=== PATIENT | male | born 1935 | race Caucasian/White ===

== ENCOUNTER 2018-04-01 11:44 | Outpatient (CLI) | payer MEDICARE, OTHER ==
--- NOTE | 2018-04-01 13:45 | MRI ---
NONCONTRAST MRI CERVICAL SPINE: Date: 03/22/18 HISTORY: Myoclonus. History of cervical spine fusion. Twitching. COMPARISON: 06/05/16. FINDINGS: There is straightening of the normal cervical lordotic curvature. Again noted is fusion of the C5-C6 and C6-C7 levels. There is mild nonspecific heterogeneity of the bone marrow similar to prior study. Cervicomedullary junction has a normal appearance. Normal signal intensity is demonstrated in the spi nal cord. C2-3 Level: Bilateral facet hypertrophic changes are again seen with resultant mild bilateral neural foraminal narrowing, similar to the prior exam. There is mild broad based disc osteophyte complex whi ch narrows the ventral subarachnoid space. C3-4 Level: There is a broad based disc osteophyte complex and uncinate process hypertrophy. This na rrows the ventral subarachnoid space. There is mild right-sided neural foraminal narrowing. The left neural foramen appears patent. C4-5 Level: There is a broad based disc osteophyte complex and uncinate process hypertrophy. This ag ain results in effacement of the ventral subarachnoid space with slight flattening of the anterior as pect of the spinal cord. Neural foramina do appear patent. C5-6 Level: There is posterior osteophyte formation, including uncinate process hypertrophy. This re sults in generalized narrowing of the central spinal canal with moderate bilateral neural foraminal n arrowing similar to the prior exam. C6-7 Level: There is posterior osteophyte formation, much less prominent than at the C5-6 level. The re is slight narrowing of the ventral subarachnoid space. The neural foramina are patent. C7-T1 Level: There is no disc bulge or disc herniation. Central spinal canal and neural foramina are patent. IMPRESSION: 1. Stable degenerative changes of the cervical spine, as well as stable fusion of C5-6 and C6-7 leve ls. 2. Normal signal intensity demonstrated in the spinal cord. POS: [facility]
== END 2018-04-01 11:45 | disposition home or self-care (01) ==
LOC: SCSMRI 11:44
PROVIDERS: ATTEND Psychiatry & Neurology Neurology
DX: G25.3 Myoclonus (principal); M47.892 Other spondylosis, cervical region; Z98.1 Arthrodesis status
CPT/HCPCS: 72141

== ENCOUNTER 2019-01-09 15:35 | Outpatient (CLI) | payer MEDICARE, OTHER ==
--- NOTE | 2019-01-09 15:45 | SJPRAD ---
EXAM: Chest 2 views: HISTORY: Cough COMPARISON: 12/12/2018 FINDINGS: There is a normal-sized cardiomediastinal silhouette. Atherosclerotic calcifications are seen in the aorta. There is no evidence of consolidation, mass, or pleural effusion. Degenerative changes are seen in the spine. IMPRESSION: No evidence of acute cardiopulmonary disease
== END 2019-01-09 15:36 | disposition home or self-care (01) ==
LOC: MWLC RAD 15:35
PROVIDERS: ATTEND Family Medicine
DX: R05 Cough (principal)

== ENCOUNTER 2019-04-30 12:57 | Inpatient (IN) | payer MEDICARE ==
[2019-04-30] MEDS ORDERED: Morphine 4 MG/ML VIAL ONE ×2 (13:56→18:20)
[2019-04-30] MEDS ORDERED: Ondansetron PF 4 MG/2 ML Vial ONE ×2 (13:56→18:20)
[2019-04-30 13:57] LABS: #Lymphocytes 1.6 thou/uL (1.20-3.40); #Monocytes 1.2 thou/uL (0.11-0.59); #Neutrophils 9.3 thou/uL (1.40-6.50); %Basophils 0.1 % (0.0-1.0); %Eosinophils 0.1 % (0.0-10.0); %Lymphocytes 13.2 % (21.0-51.0); %Monocytes 9.6 % (0.0-10.0); %Neutrophils 76.9 % (42.0-75.0); Hemoglobin 14.3 g/dL (14.0-18.0); Mean Corpuscular HGB CONC 33.6 g/dL (32.0-36.0); Mean Corpuscular Hemoglobin 30.7 pg (27.0-31.0); Mean Corpuscular Volume 91.4 fL (78.0-98.0); Mean Platelet Volume 9.3 fL (7.4-10.4); Platelet Count 155 thou/uL (130-400); RBC Distribution Width 12.9 % (11.5-14.5); Red Blood Cell (RBC) Count 4.67 mill/uL (4.70-6.10); White Blood Cell (WBC) Count 12.1 thou/uL (4.8-10.8)
[2019-04-30 14:19] LABS: ALT (SGPT) 11 U/L (8-55); AST (SGOT) 12 U/L (5-34); Alkaline Phosphatase 83 U/L (40-110); Anion Gap 14 mmol/L (10-20); BUN (Urea Nitrogen) 33 mg/dL (8.4-25.7); Bilirubin, Total 0.8 mg/dL (0.2-1.2); Calc. Creatinine Clearance 0 mL/min (70-130); Calcium 9.6 mg/dL (7.8-10.44); Carbon Dioxide 28 mmol/L (23-31); Chloride 99 mmol/L (98-107); Estimated GFR-MDRD 45; Globulin 2.7 g/dL (2.4-3.5); Glucose 139 mg/dL (83-110); Lipase 11 U/L (8-78); Potassium 3.8 mmol/L (3.5-5.1); Protein, Total 6.7 g/dL (5.8-8.1); Sodium 137 mmol/L (136-145)
[2019-04-30 15:29] LABS: Bacteria/HPF None Seen HPF (None Seen); Bilirubin Negative (Negative); Blood, Urine 1+ (Negative); Clarity Clear (Clear); Glucose, Urine (Dipstick) Normal (Negative); Leukocyte Negative Leu/uL (Negative); Nitrite Negative (Negative); Protein, Urine (Dipstick) 10 mg/dL (Neg-Trace); RBC/HPF 0-3 HPF (0-3); Squamous Epithelial None Seen HPF (0-3); Urobilinogen Normal mg/dL (Less than 2); WBC/HPF 0-3 HPF (0-3)
--- NOTE | 2019-04-30 15:33 | RAD ---
Exam: Chest one view HISTORY:Cough Comparison: 12/29/2012 FINDINGS: Cardiac silhouette: Normal Aorta: Atherosclerosis of the aortic knob Pulmonary vessels: Normal Costophrenic angles: Clear LUNGS: No masses or consolidation in the right lung. Chronic changes, bilaterally. Partial obscuratio n of the left hemidiaphragm. Left lower lobe infiltrate cannot be excluded. Pneumothorax: None Osseous abnormalities: None IMPRESSION: Possible left lower lobe infiltrate.
[2019-04-30] MEDS ORDERED: Iopamidol-370 76% 500 ML 1 ML ONE (16:48)
[2019-04-30] MEDS ORDERED: Iopamidol 370 76% 50 ML VIAL FS ONE (16:48)
[2019-04-30] MEDS ORDERED: Benzocaine 20% Spray 60 ML CAN ONE (18:22)
[2019-04-30] MEDS ORDERED: Ondansetron PF 4 MG/2 ML Vial IVP PRN (18:32)
[2019-04-30] MEDS ORDERED: Sodium Chloride 0.9% (PF) 10 ML VIAL FS PRN (18:42)
--- NOTE | 2019-04-30 21:09 | CT ---
CT ABDOMEN AND PELVIS WITH ORAL AND IV CONTRAST: Date: 04/30/19 HISTORY: Right lower quadrant abdominal pain and vomiting. FINDINGS: Comparison made with exam of 04/28/[address] [facility]. There are dependent changes in the lung bases with calcified granulomas. The liver, spleen, pancreas, and adrenal glands are normal. There are cysts in the kidneys. There is vicarious excretion of contr ast in the gallbladder. 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 No free air is seen. There is a small amount of free fluid in the pelvis. The small bowel loops are abnormally dilated with suggestion of a transitional zone in the distal ile um. There is also swelling of the small bowel mesentery. An internal hernia cannot be excluded. No pn eumatosis is seen. The anastomotic staple line in the cecum is again noted. Nonobstructing left renal calculus is unchanged. IMPRESSION: 1. Findings are suggestive of small bowel obstruction. An internal hernia cannot be excluded. 2. Bilateral renal cysts. 3. Nonobstructing left renal calculus. POS: [facility]O
--- NOTE | 2019-04-30 21:18 | RAD ---
ONE VIEW ABDOMEN: History: Evaluate NG tube placement. FINDINGS: One view abdomen demonstrates a nasogastric tube terminating in the distal stomach. There are multiple contrast filled dilated loops of small bowel. Contrast is also noted in the urinar y bladder. IMPRESSION: A nasogastric tube terminates in the stomach. POS: PPP
[2019-04-30] MEDS: Enoxaparin Sodium 40 MG/0.4 ML SYRINGE SC SCH (21:33)
[2019-04-30] MEDS: Lactated Ringer's 1,000 ML IV SCH (21:33)
[2019-04-30] MEDS: Lorazepam 2 MG/ML VIAL SLOW IVP PRN (21:36)
--- NOTE | 2019-04-30 22:20 | HP ---
HISTORY OF PRESENT ILLNESS: Alycia Stapleton is an 83-year-old male, patient from [place], he is here with his . Two days ago, he was at [facility] and 2 days prior to that began having experienced crampy abdominal pain, distention, nausea. He was seen at [facility], evaluated, sent home with a possible early bowel obstruction. He continued to have symptoms, nausea, vomiting, cramps, lack of bowel movement and minimal flatus, and presented to the emergency room today and evaluated in the emergency room with a CAT scan of the abdomen and pelvis demonstrating changes consistent with bowel obstruction. I have been asked to see him. The patient has had a prior appendectomy. Cannot recall whether it is laparoscopic or open and I cannot find any scars that would be consistent with open procedure. He has had an open inguinal hernia repair. He reports having had a colonoscopy about 4 years ago and many colonoscopies prior to that. He has had in the past large polyps removed. Formal radiology reading is pending, but CAT scan revealed a very full stomach, dilated loops of small bowel with air-fluid levels and some sigmoid stool, but not overly constipated. There are no evident hernias. Gallbladder appears to be normal. Chest x-ray obtained is unremarkable except for possible left lower lobe infiltrate. White count is 12, hemoglobin 14, BUN 33, creatinine 1.48, sodium 137. Perusing past computer records, he is noted to have intermittently elevated creatinine mildly to 1.47-1.38, but mostly this has been normal since 2013. He may have mild CKD with mild SUZAN this admission from dehydration. On 02/28/2015, robotic right colectomy, sessile tumor mass, benign adenomatous polyp, no malignancy. November 2016, upper endoscopy, duodenitis, fragments of tubular adenoma. ALLERGIES: ASPIRIN, IBUPROFEN, NOTED. SOCIAL HISTORY: Tobacco, none. Alcohol, none. PAST MEDICAL HISTORY: Hypertension, hyperlipidemia, degenerative joint disease, mild GERD, depression, erectile dysfunction, gout, polycythemia. PAST SURGICAL HISTORY: Ear tube placement, C-spine fusion, right rotator cuff, left knee arthroscopy, right inguinal hernia repair, robotic right colectomy, colonoscopies as noted. MEDICATIONS: 1. Tizanidine 4 mg at bedtime. 2. Clonazepam. 3. Klonopin 0.5 mg at bedtime. 4. Vitamin E. 5. Restoril 15 at bedtime. 6. Zocor 20 at bedtime. 7. Sertraline 25 daily. 8. Primidone 50 mg b.i.d. 9. Meclizine 25 mg p.r.n. 10. as needed. 11. Lisinopril and hydrochlorothiazide 20/12.5 daily. 12. Flunisolide nasal spray as needed. 13. Colestipol 2 g p.o. p.r.n. 14. Ascorbic acid daily. REVIEW OF SYSTEMS: Noncontributory. PHYSICAL EXAMINATION: VITAL SIGNS: Blood pressure 140/82, respiratory rate 18. HEAD, EARS, EYES, NOSE AND THROAT: Unremarkable. LUNGS: Clear to auscultation. CARDIAC: Regular rate and rhythm without murmur or gallop. ABDOMEN: Mildly distended, mildly tympanitic. No hernias noted. Open right inguinal hernia repair scar, right groin. EXTREMITIES: Unremarkable. LABORATORY DATA: As noted. ASSESSMENT AND PLAN: 1. Bowel obstruction. We would plan NG tube suction overnight. Small bowel follow through tomorrow. Further recommendation will be based on clinical course. 2. Mild above-knee amputation, hydration, LR. 3. Hypertension. 4. Hyperlipidemia. 5. History of polyps. Now the patient is baseline, lives with his . He is healthy. He occasionally walks with a cane for comfort and reassurance, but is otherwise mentates normally and is independently mobile. Job ID: [id number]
[2019-05-01] MEDS: Lactated Ringer's 1,000 ML IV SCH ×3 (05:14→23:39)
[2019-05-01 05:35] LABS: #Lymphocytes 2.1 thou/uL (1.20-3.40); #Monocytes 1.3 thou/uL (0.11-0.59); #Neutrophils 7.5 thou/uL (1.40-6.50); %Eosinophils 0.3 % (0.0-10.0); %Lymphocytes 19.2 % (21.0-51.0); %Monocytes 11.7 % (0.0-10.0); %Neutrophils 68.8 % (42.0-75.0); Mean Corpuscular HGB CONC 33.9 g/dL (32.0-36.0); Mean Corpuscular Hemoglobin 31.4 pg (27.0-31.0); Mean Corpuscular Volume 92.7 fL (78.0-98.0); Mean Platelet Volume 10.2 fL (7.4-10.4); Platelet Count 144 thou/uL (130-400); RBC Distribution Width 12.7 % (11.5-14.5); Red Blood Cell (RBC) Count 4.15 mill/uL (4.70-6.10); White Blood Cell (WBC) Count 10.9 thou/uL (4.8-10.8)
[2019-05-01 05:59] LABS: ALT (SGPT) 9 U/L (8-55); AST (SGOT) 11 U/L (5-34); Albumin 3.6 g/dL (3.4-4.8); Alkaline Phosphatase 71 U/L (40-110); Anion Gap 12 mmol/L (10-20); BUN (Urea Nitrogen) 34 mg/dL (8.4-25.7); Bilirubin, Total 0.7 mg/dL (0.2-1.2); Calc. Creatinine Clearance 42 mL/min (70-130); Calcium 9.2 mg/dL (7.8-10.44); Carbon Dioxide 31 mmol/L (23-31); Chloride 98 mmol/L (98-107); Estimated GFR-MDRD 44; Globulin 2.4 g/dL (2.4-3.5); Glucose 110 mg/dL (83-110); Potassium 3.4 mmol/L (3.5-5.1); Sodium 138 mmol/L (136-145)
[2019-05-01] MEDS: Pantoprazole 40 MG VIAL IVP SCH (08:01)
--- NOTE | 2019-05-01 11:32 | RAD ---
TWO VIEWS ABDOMEN: HISTORY: Evaluate small bowel obstruction. FINDINGS: Nasogastric tube terminates at the distal stomach. Multiple contrast-filled loops of small bowel. Haylie stomotic suture chain in the right lower quadrant. Scattered fecal material in the right hemicolon. Contrast opacifies and mildly distends the bladder. IMPRESSION: Fluid-filled and contrast filled prominent small bowel loops. Transcribed Date/Time: 05/01/2019 11:49 AM
--- NOTE | 2019-05-01 13:20 | CT ---
CT BRAIN WITHOUT CONTRAST: Date: 05/01/19 HISTORY: Fall, headache. FINDINGS: Comparison made with CT scan of 02/09/07. Correlation made with the MRI of 10/08/16. Changes of cortical atrophy and chronic small vessel ischemic disease again seen. The ventricular siz e is appropriate and the basilar cisterns are patent. No evidence of acute infarct, hemorrhage, midli ne shift, or abnormal extra-axial fluid collections are seen. The bony calvarium is intact. There is mild mucosal disease in the paranasal sinuses. IMPRESSION: No CT evidence of acute intracranial process. POS: [facility]
[2019-05-01] MEDS ORDERED: Lidocaine 1% w/Epinephrine 1:100K 20 ML VIAL FS SCH (13:30)
[2019-05-01] MEDS: Triple Antibiotic Oint 1 GM Packet TOP PRN (13:49)
--- NOTE | 2019-05-01 14:01 | PRG ---
DATE OF SERVICE: 05/01/2019 SUBJECTIVE: Alycia Stapleton is doing well today. However, in x-ray, undergoing a small bowel follow-through. He was left unattended on the x-ray table and a passerby radiologist discovered the patient had fallen off the table to the floor. Apparently, the patient did not lose consciousness. He is not amnestic for the event. His CAT scan of the head was obtained and is unremarkable. The patient is a little sleepy, but he is like that sometimes small bowel follow-through is not progressing after an hour and a half. He has not had any nausea or vomiting, or cramps, however. NG tube output last night was 600 mL. OBJECTIVE: LUNGS: Clear to auscultation. CARDIAC: Regular rate and rhythm without murmur or gallop. ABDOMEN: Soft, mildly distended, tympanitic. LABORATORY DATA: White count 10 and hemoglobin 13. Sodium 138, BUN 34, creatinine 1.5, which is stable for him. GFR 44. ASSESSMENT AND PLAN: Small bowel obstruction after robotic right colon for large polyp. He has fallen, has 3 cm laceration over his forehead, which will need to be closed at bedside and will be performed today. There is no evidence of an intracranial injury evident by CT scan and neurologically, he is intact. He denies any neck pain and his neck is not tender. Await small bowel followthrough results. Dr. Friedman performed his robotic right colon in the past and will assume his care. Job ID: [id number]
--- NOTE | 2019-05-01 15:25 | OP ---
DATE OF PROCEDURE: 05/01/2019 PREOPERATIVE DIAGNOSIS: Forehead laceration, 3 cm secondary to a fall off an x-ray table in X-ray Department during a small-bowel follow-through procedure (CAT scan of the head is negative, and he did not lose consciousness and is not amnestic). POSTOPERATIVE DIAGNOSIS: Forehead laceration, 3 cm secondary to a fall off an x-ray table in X-ray Department during a small-bowel follow-through procedure (CAT scan of the head is negative, and he did not lose consciousness and is not amnestic). PROCEDURE PERFORMED: Suture of laceration, 6-0 Prolene, 3 cm forehead laceration. ANESTHESIA: 1% Xylocaine with epinephrine. DESCRIPTION OF PROCEDURE: With the patient at bedside in his room, his forehead laceration was prepared with Betadine and draped in routine fashion. Local anesthetic was infiltrated in the skin and subcutaneous tissue, and the skin was approximated with continuous suture of 6-0 Prolene. Antibiotic ointment was applied. Job ID: [id number]
--- NOTE | 2019-05-01 16:04 | RAD ---
Small bowel series: DATE: 05/01/2019 HISTORY: 83-year-old male with small bowel obstruction. FINDINGS: Offset Platemaker view demonstrates residual dilute enteric contrast material in small intestine from recent CT. Gastrografin injected into stomach via esophagogastric tube. Gastrografin progresses slowly through mildly dilated small bowel loops. There is little progress between the 2.5 hour and 4.5 hour images. IMPRESSION: Evidence for small bowel obstruction.
--- NOTE | 2019-05-01 16:40 | PRG ---
DATE OF SERVICE: 05/01/2019 SUBJECTIVE: Mr. Stapleton is an 83-year-old white male well known to myself from prior surgery in 2015. At that point, I performed a robotic right hemicolectomy. He had a large benign unresectable polyp. He did very well after that surgery and was discharged on postoperative day #2 and has had no subsequent problems for the past 4 years. He was admitted to the hospital yesterday with abdominal pain, distention, nausea, vomiting, and evidence of bowel obstruction on CT scan. Nasogastric tube was placed overnight. He was admitted in my absence by Dr. Maldonado. Additionally, Dr. Maldonado sutured laceration on his forehead earlier today when he fell in the radiology department. A Gastrografin small-bowel follow-through was initiated earlier today. He has had no bowel movement. He tells me he does not feel like he is going to vomit. His abdomen is actually fairly quiet. He denies tenderness, but it is also relatively firm to examination. He has difficulty relaxing his abdominal musculature. OBJECTIVE: VITAL SIGNS: He is afebrile. Vital signs are essentially normal, although he is mildly hypertensive. LABORATORY STUDIES: Reveal a mild leukocytosis, which is improved since admission. His chemistry panel is unremarkable with mild renal insufficiency. X-rays revealed that the contrast had not advanced after about an hour and a half. Additional films are planned for today. ASSESSMENT: The patient with small bowel obstruction. Plan is to complete his small bowel follow-through. I would anticipate that he will begin having bowel movements or he would vomit. If he vomits, then tube will be placed to suction and he would likely require surgery tomorrow. Depending upon the distention of his abdomen and intestines, this may be able to be performed laparoscopically or may have to be performed as an open surgery. I have discussed all this with the patient and his family. They understand and agree to proceed in this fashion. Job ID: [id number]
[2019-05-01] MEDS ORDERED: Fleet Enema 133 ML BOT FS SCH (18:30)
[2019-05-01] MEDS ORDERED: Fleet Enema 133 ML BOT PR SCH (18:30)
[2019-05-01] MEDS: Ketorolac Tromethamine 30 MG/ML VIAL IVP PRN (20:17)
[2019-05-01] MEDS: Enoxaparin Sodium 40 MG/0.4 ML SYRINGE SC SCH (20:17)
[2019-05-01] MEDS: Morphine 2 MG/ML SYRINGE SLOW IVP PRN (20:18)
[2019-05-01] MEDS: Lorazepam 2 MG/ML VIAL SLOW IVP PRN (23:39)
--- NOTE | 2019-05-02 06:47 | PDOC.GSPN ---
Surgery Progress Note: Subj - Subjective Narrative: Mr. Stapleton is an 83 year old male who presented 2 days ago with abdominal pain, distension, nausea, and vomiting. He was diagnosed with a small bowel obstruction based on clinical picture and confirmatory imaging. His last episode of emesis was yesterday afternoon, 300 mL. He currently has an NG tube set to suction that put out 1100 mL overnight. He received an enema last night, which produced a small amount of hard fecal material. He is currently NPO in preparation for the OR today. He is currently receiving LR at 120 mL/hr. He voided 400 mL overnight. Last night he received Ativan for confusion and agitation. The night nurse reports that he has night terrors and PTSD, which contributed to this agitation. Surgery Progress Note: Obj - Vital signs Vital signs: Vital Signs - Most Recent Temp Pulse Resp BP Pulse Ox 98.0 F 75 18 126/64 95 05/02/19 03:28 05/02/19 03:28 05/02/19 03:28 05/02/19 03:28 05/02/19 03:28 - Physical Exam General: no distress, no pain ENT: decreased hearing (hearing aids present) Cardiovascular: regular rate and rhythm, no murmur Respiratory: clear to auscultation, normal respiratory effort Abdomen: soft, non tender, nondistended, decreased bowel sounds (minimal bowel sounds present on auscultation). negative: guarding, rigid Wound: healing well (laceration on right upper forehead is without erythema or drainage), drainage (NG tube in place set to suction) Surgery Progress Note: Results - Labs Result Diagrams: 05/01/19 04:37 05/01/19 04:37 Surgery Progress Note: A/P - Problem (1) Small bowel obstruction Current Visit: Yes Code(s): K56.609 - UNSP INTESTNL OBST, UNSP TO PARTIAL VERSUS COMPLETE OBST Status: Acute Assessment and Plan: Patient is an 83 year old male with a small bowel obstruction that has not resolved with conservative measures. He will go to the OR today. Vital signs are all within normal limits. He has no new labs today, and labs yesterday revealed resolving leukocytosis and mild renal insufficiency. Dr. Friedman discussed the plan for surgery with the patient and his family yesterday and they have agreed to the current plan.
[2019-05-02 08:06] LABS: #Lymphocytes 1.6 thou/uL (1.20-3.40); #Monocytes 0.8 thou/uL (0.11-0.59); #Neutrophils 6.5 thou/uL (1.40-6.50); %Basophils 0.3 % (0.0-1.0); %Eosinophils 0.2 % (0.0-10.0); %Lymphocytes 17.8 % (21.0-51.0); %Monocytes 8.9 % (0.0-10.0); %Neutrophils 72.7 % (42.0-75.0); Hemoglobin 14.4 g/dL (14.0-18.0); Mean Corpuscular HGB CONC 33.5 g/dL (32.0-36.0); Mean Corpuscular Hemoglobin 30.7 pg (27.0-31.0); Mean Corpuscular Volume 91.7 fL (78.0-98.0); Mean Platelet Volume 9.4 fL (7.4-10.4); Platelet Count 143 thou/uL (130-400); RBC Distribution Width 12.9 % (11.5-14.5); Red Blood Cell (RBC) Count 4.68 mill/uL (4.70-6.10)
[2019-05-02 08:22] LABS: Anion Gap 19 mmol/L (10-20); BUN (Urea Nitrogen) 36 mg/dL (8.4-25.7); Calc. Creatinine Clearance 41 mL/min (70-130); Calcium 9.8 mg/dL (7.8-10.44); Carbon Dioxide 28 mmol/L (23-31); Chloride 101 mmol/L (98-107); Estimated GFR-MDRD 43; Glucose 106 mg/dL (83-110); Potassium 3.1 mmol/L (3.5-5.1); Sodium 145 mmol/L (136-145)
--- NOTE | 2019-05-02 08:51 | RAD ---
XR Abdomen 1 View/KUB History: Small bowel follow-through follow-up Comparison: Small bowel follow-through examination prior day Findings: Enteric tube is in place with tip at the gastric antrum. There continue to be dilated loops of small bowel. There is contrast throughout the majority of the small bowel although no definite large bowel contrast is appreciated. There is old retained contrast within the transverse colon. Impression: Small bowel obstruction.
[2019-05-02] MEDS: Potassium Chloride 20 MEQ in Lactated Ringer's 1,000 ML IV SCH ×3 (09:15→22:52)
[2019-05-02] MEDS: Ketorolac Tromethamine 30 MG/ML VIAL IVP PRN (09:16)
[2019-05-02] MEDS: Triple Antibiotic Oint 1 GM Packet TOP PRN (09:16)
[2019-05-02] MEDS: Pantoprazole 40 MG VIAL IVP SCH (09:16)
[2019-05-02] MEDS: Lactated Ringer's 1,000 ML IV SCH (10:33)
[2019-05-02] MEDS ORDERED: Metoprolol Tartrate 5 MG/5 ML VIAL ONE (10:44)
[2019-05-02] MEDS ORDERED: Rocuronium Bromide 10 MG/ML (10ML VIAL) ONE (10:44)
[2019-05-02] MEDS ORDERED: Lidocaine 1% PF 5 ML VIAL ONE (10:44)
[2019-05-02] MEDS ORDERED: Succinylcholine Chloride 20 MG/ML 10 ml SYRINGE FS ONE (10:44)
[2019-05-02] MEDS ORDERED: PHENYLEPHRINE-NS 100 MCG/ML 10 ML SYRINGE ONE (10:44)
[2019-05-02] MEDS ORDERED: Glycopyrrolate 0.2 MG/ML 5 ML SYRINGE ONE (10:44)
[2019-05-02] MEDS ORDERED: PROPOFOL 200 MG/20 ML VIAL ONE (10:44)
[2019-05-02] MEDS ORDERED: ePHEDrine/0.9% NaCl/PF SYRINGE 50 mg/10 ml ONE (10:44)
[2019-05-02] MEDS ORDERED: Ondansetron PF 4 MG/2 ML Vial ONE (10:44)
[2019-05-02] MEDS ORDERED: Potassium Chloride 40 MEQ in Sodium Chloride 0.9% 250 ML 250 ML IVPB SCH (11:00)
[2019-05-02] MEDS ORDERED: CEFAZOLIN 2 GM in Premix Bag 1 BAG IVPB SCH (11:45)
[2019-05-02] MEDS ORDERED: Acetaminophen 1,000 MG in Premix Bag 1 BAG IVPB SCH (11:45)
[2019-05-02] MEDS: Lorazepam 2 MG/ML VIAL SLOW IVP PRN (11:58)
--- NOTE | 2019-05-02 13:44 | PDOC.HOSPP ---
- Subjective Encounter Date: 05/02/19 Encounter Time: 13:44 Subjective: pt up in bed confused family at bedside. - Objective Vital Signs & Weight: Vital Signs (12 hours) Temp Pulse Resp BP Pulse Ox 05/02/19 12:00 97.6 F 79 14 169/78 H 92 L 05/02/19 08:42 93 L 05/02/19 08:00 98.0 F 90 20 152/84 H 93 L 05/02/19 03:28 98.0 F 75 18 126/64 95 05/02/19 02:41 91 L Weight Admit Weight 182 lb 8 oz Weight 182 lb 8 oz I&O: 05/01/19 05/02/19 05/03/19 06:59 06:59 06:59 Intake Total 3610 Output Total 600 4050 Balance -600 -440 Result Diagrams: 05/02/19 07:51 05/02/19 07:51 Additional Labs: Accuchecks 05/01/19 12:34 POC Glucose 102 Hospitalist ROS - Review of Systems Other: unable to obtain - Medication Medications: Active Medications Generic Name Dose Route Start Last Admin Trade Name Freq PRN Reason Stop Dose Admin Enoxaparin Sodium 40 mg 04/30/19 21:00 05/01/19 20:17 Lovenox SC 40 mg 2100 DONALD Administration Potassium Chloride 20 meq/ 1,010 mls @ 125 mls/hr 05/02/19 07:45 05/02/19 09: 15 Lactated Ringer's IV 1,010 mls .[id number] DONALD Administration Potassium Chloride 40 meq/ 270 mls @ 90 mls/hr 05/02/19 11:00 05/02/19 12:32 Sodium Chloride IVPB 05/02/19 16:00 270 mls 1100 DONALD Administration Ketorolac Tromethamine 15 mg 04/30/19 18:37 05/02/19 09:16 Toradol IVP 05/05/19 18:38 15 mg Q6H PRN Administration Pain Morphine Sulfate 2 mg 04/30/19 18:32 05/01/19 20:18 Morphine SLOW IVP 2 mg Q2H PRN Administration Mild Pain (1-3) Neomycin/Polymyxin/Bacitracin 0 gm 05/01/19 13:23 05/02/19 09:16 Triple Antibiotic TOP 1 gm BIDPRN PRN Administration INFECTION Pantoprazole Sodium 40 mg 05/01/19 09:00 05/02/19 09:16 Protonix IVP 40 mg DAILY DONALD Administration Sodium Chloride 10 ml 04/30/19 18:42 05/01/19 08:01 Normal Saline Pf FS 10 ml PRN PRN Administration RECONSTITUTION - Exam Neck: negative: supple, symmetric, no JVD, no thyromegaly, no lymphadenopathy, no carotid bruit, JVD Heart: negative: RRR, no murmur, no gallops, no rubs, normal peripheral pulses, irregular, diminshed peripheral pulses, murmur present, II/IV, III/IV Respiratory: negative: CTAB, no wheezes, no rales, no ronchi, normal chest expansion, no tachypnea, normal percussion, rales, rhonchi, tachypneic, wheezes Neurological - other findings: confused not oriented, wants to go home Hosp A/P (1) Acute metabolic encephalopathy Code(s): G93.41 - METABOLIC ENCEPHALOPATHY Status: Acute (2) Depressed Code(s): F32.9 - MAJOR DEPRESSIVE DISORDER, SINGLE EPISODE, UNSPECIFIED Status : Acute (3) Small bowel obstruction Code(s): K56.609 - UNSP INTESTNL OBST, UNSP TO PARTIAL VERSUS COMPLETE OBST Status: Acute - Plan pt is on many antipsy meds and per family has not been taking it since . will restart his oral meds and ask nurse to clamp ng if ok with surgery. I think this is delirium. He has no hx of drinking. will rescan his head per family request due to his fall yesterday, however i think his current symptoms are due to delirium. will also disconitnue ativan which worsens mental status and put him on haldol as needed. Seroquel is also a another option for delirium but it is po. i will continue his klonopin which he takes at night.
--- NOTE | 2019-05-02 14:59 | CT ---
CT BRAIN WITHOUT CONTRAST: Date: 05/02/19 HISTORY: Fall, changing mental status. COMPARISON: Previous day. FINDINGS: Changes of cortical atrophy and chronic small vessel ischemic disease again seen. Ventricular size is stable and basilar cisterns are patent. No evidence of acute infarct, hemorrhage, midline shift, or abnormal extra-axial fluid collections are seen. The bony calvarium is intact. There is mild mucosal disease in the paranasal sinuses. There is soft tissue swelling in the right frontal scalp. IMPRESSION: No CT evidence of acute intracranial process. POS: OFF
[2019-05-02] MEDS: Haloperidol Lactate 5 MG/ML VIAL SLOW IVP PRN ×2 (15:13→22:22)
[2019-05-02] MEDS ORDERED: Fentanyl 100 MCG/2 ML VIAL ONE ×3 (18:01→20:56)
[2019-05-02] MEDS ORDERED: Phenylephrine HCL 10 MG/ML VIAL ONE (18:01)
[2019-05-02] MEDS ORDERED: Norepinephrine 4 MG/4 ML VIAL ONE (18:01)
[2019-05-02] MEDS ORDERED: Albumin 5% 0 ML ONE (18:01)
[2019-05-02] MEDS ORDERED: Lidocaine 1% w/Epinephrine 1:100K 20 ML VIAL ONE (18:33)
[2019-05-02] MEDS ORDERED: Bupivacaine PF 0.5% 30 ML VIAL ONE (18:33)
[2019-05-02] MEDS ORDERED: Sodium Chloride 0.9% 20 ML ONE (18:54)
[2019-05-02] MEDS ORDERED: Promethazine HCl 25 MG/ML VIAL IM PRN (20:25)
[2019-05-02] MEDS ORDERED: Promethazine HCl 25 MG/ML VIAL SLOW IVP PRN (20:25)
[2019-05-02] MEDS ORDERED: Ondansetron HCl/PF 4 MG/2 ML Vial IVP PRN (20:25)
[2019-05-02] MEDS ORDERED: Zonisamide 100 MG CAP PO SCH (21:00)
[2019-05-02] MEDS ORDERED: clonazePAM 0.5 MG TAB PO SCH (21:00)
[2019-05-02] MEDS: hydrALAZINE 20 MG/ML VIAL SLOW IVP PRN (22:21)
[2019-05-02] MEDS: Morphine 2 MG/ML SYRINGE SLOW IVP PRN (22:24)
--- NOTE | 2019-05-02 22:46 | RAD ---
Exam: Chest one view: HISTORY: Central line placement FINDINGS: Left subclavian catheter in place without pneumothorax. NG tube in place. Evidence for free intraperi toneal air. No confluent pneumonia, acute edema, or other acute process. Old granulomatous disease. IMPRESSION: Unremarkable post left subclavian and NG tube placement exam. Free intraperitoneal air. Recent abdomi nal laparotomy by history.
[2019-05-02] MEDS: Enoxaparin Sodium 40 MG/0.4 ML SYRINGE SC SCH (23:31)
[2019-05-03] MEDS: Morphine 4 MG/ML VIAL SLOW IVP PRN (00:11)
--- NOTE | 2019-05-03 03:23 | OP ---
DATE OF PROCEDURE: 05/02/2019 PREOPERATIVE DIAGNOSIS: Small-bowel obstruction. POSTOPERATIVE DIAGNOSIS: Small-bowel obstruction. PROCEDURE PERFORMED: Laparoscopic-assisted lysis of adhesions. ANESTHESIA: General endotracheal. INDICATIONS: Patient is an 83-year-old white male. He is four years status post robotic right hemicolectomy. He presented with findings consistent with small-bowel obstruction that was not resolving with conservative management. He is taken to the operating room at this time for exploration. DESCRIPTION OF OPERATION: Informed consent was obtained. Patient was taken to the operating room, where general endotracheal anesthesia was obtained. Patient in supine position. Abdomen was prepped with ChloraPrep and draped in sterile fashion. Local anesthetic was infiltrated with 0.25% Marcaine with epinephrine. A 5 mm left mid abdominal incision created, through which a Veress needle was passed. Peritoneal cavity pneumoperitoneum established using carbon dioxide up to pressure of 15 mmHg. A 5 mm trocar port site was established using the same incision. Laparoscopic camera was passed through this port. Under direct vision, two additional 5 mm ports were placed, one in the left upper abdomen, one in the left lower abdomen. Laparoscopic exploration was attempted. Patient had diffuse dilatation of the small bowel. The transverse colon was easily visualized as it was clearly decompressed. Attempts to manipulate the bowel and move the bed so that I could try to visualize the source of a problem were unsuccessful. I therefore decided after a period of attempt that I needed to move on to a hand-assisted procedure. An 8 cm midline periumbilical incision was created and dissection carried to the abdominal cavity through the fascia. The Toilio wound retractor was placed. I was able to easily mobilize the small bowel through the retractor. There were no adhesions to the anterior abdominal wall anywhere within the abdominal cavity. As I began to explore the small bowel, I quickly noted a single obstructing band. This appeared to be between the colon near the anastomosis between the small bowel and the proximal transverse colon. This was then attached to a segment of small bowel for no apparent reason. Upon dividing that adhesion, the obstruction resolved immediately. I was able to run the small bowel essentially from the anastomosis back to the ligament of Treitz. There were no adhesions in any location. There had been no blood loss during the operation. The omentum was pulled down across the hand-assist port site. The laparoscopic access was reinstituted. The abdomen was explored. Again, the bowel dilatation made it difficult to see anything, but there was no evidence of any bleeding in any location. All ports were removed under direct vision. Pneumoperitoneum was carefully evacuated. The Otilio wound retractor and GelPort were removed. Additional local anesthetic was infiltrated using a mixture of 0.5% Marcaine and 1% lidocaine with epinephrine. The skin incisions were all closed with a 4-0 Monocryl subcuticular suture with Dermabond placed externally. The midline incision was closed with a running suture of #1 PDS. The skin edges approximated with 4-0 Monocryl subcuticular suture. Dermabond was placed externally. There were no complications at any time during the operation. Patient tolerated the procedure well. A left subclavian 7-Spanish triple-lumen central line was placed using modified Seldinger technique in the usual fashion. Each of the three lumens aspirated blood freely and was flushed with heparinized saline. Catheter was secured with 3-0 silk suture. Sterile occlusive dressing was applied. Job ID: [id number]
[2019-05-03] MEDS ORDERED: Haloperidol Lactate 5 MG/ML VIAL ONE (03:40)
[2019-05-03] MEDS ORDERED: hydrALAZINE 20 MG/ML VIAL ONE (03:41)
[2019-05-03] MEDS ORDERED: Morphine 4 MG/ML VIAL ONE (03:41)
--- NOTE | 2019-05-03 06:50 | PDOC.GSPN ---
Surgery Progress Note: Subj - Subjective Patient reports: no bowel movement Narrative: Today is POD1 from laparoscopic assisted lysis of adhesion and pt is recovering well. Pt has no BM yet w/ hypoactive bowel sound, but wound sites are recovering well. Pt did fine overnight w/ no acute events and/or febrile episodes. Pt remains combative, oriented to person only, and bed-bound, requiring 2x haloperidol and 4 point restraints. Pt had increased SBP when agitated. Pt had 1300mL LR w/ 20mEq KCl input and 1125mL NG suction along w/ 325mL Pina UO. Surgery Progress Note: Obj - Vital signs Vital signs: Vital Signs - Most Recent Temp Pulse Resp BP Pulse Ox 97.8 F 79 14 173/99 H 96 05/03/19 05:00 05/03/19 03:47 05/02/19 12:00 05/03/19 03:47 05/02/19 22:00 - Physical Exam General: other (agitated) ENT: normal mucosa, decreased hearing Cardiovascular: regular rate and rhythm (difficult to assess due to pt's grunting) Respiratory: coarse breath sounds (diffuse rhonchi w/ wet cough) Abdomen: non tender, nondistended, decreased bowel sounds, rigid Integumentary: other (no LE edema) Psychiatric: oriented to person Wound: healing well (both forehead stitches and abdominal wound sites are non- erythematus, nontender, and healing appropriately w/ intact dermabond) Surgery Progress Note: Results - Labs Result Diagrams: 05/02/19 07:51 05/02/19 07:51 Surgery Progress Note: A/P - Problem (1) Small bowel obstruction Current Visit: Yes Code(s): K56.609 - UNSP INTESTNL OBST, UNSP TO PARTIAL VERSUS COMPLETE OBST Status: Acute - Plan Plan: Alycia Stapleton is a 83YO CM w/ sig. PMH of HTN and PSH of R hemicolectomy who presented to the ED 3 days ago for complaints of ab. cramp, distention, and N/ V. Abdominal CT revealed SBO, and he underwent laparoscopic assisted adhesion lysis yesterday. Pt also suffered a scalp laceration 2 days ago when he fell off the x-ray table, which required stitches, and his FU head CT was unremarkable. Pt is recovering well on POD1 today, but remains combative and disoriented, which prevents PT. Pt has no CBC & CMP orders for today, but according to yesterday's values, pt's leukocytosis resolved completely, while his renal insufficiency worsened w/ increasing BUN & Cr. Pt also has decreasing potassium from 3.4 (05/01) to 3.1 (05/02) despite being on LR w/ 20mEq KCl. Pt had heightened SBP of 173/99 overnight. Maintain pt on current hydralazine while continue monitoring. Continue haloperidol PRN for pt's delirium while encouraging PT for strengthening. Continue LR hydration to improve pt's kidney function while potentially increasing potassium supplement for diminishing values.
[2019-05-03] MEDS: Potassium Chloride 20 MEQ in Lactated Ringer's 1,000 ML IV SCH (07:32)
[2019-05-03 07:56] LABS: Bilirubin Negative (Negative); Blood, Urine 3+ (Negative); Clarity Clear (Clear); Glucose, Urine (Dipstick) Normal (Negative); Leukocyte 500 Leu/uL (Negative); Nitrite Negative (Negative); Protein, Urine (Dipstick) 30 mg/dL (Neg-Trace); RBC/HPF Greater than 50 HPF (0-3); Squamous Epithelial 0-3 HPF (0-3); Urobilinogen Normal mg/dL (Less than 2); WBC/HPF Greater than 50 HPF (0-3)
[2019-05-03 08:02] LABS: Bacteria/HPF 1+ HPF (None Seen)
[2019-05-03 08:09] LABS: Urine Culture Reflex Yes Yes
[2019-05-03] MEDS: Pantoprazole 40 MG VIAL IVP SCH (08:41)
[2019-05-03] MEDS: Haloperidol Lactate 5 MG/ML VIAL SLOW IVP PRN ×3 (08:41→20:15)
[2019-05-03 08:54] LABS: #Lymphocytes 1.3 thou/uL (1.20-3.40); #Monocytes 0.8 thou/uL (0.11-0.59); #Neutrophils 7.2 thou/uL (1.40-6.50); %Basophils 0.1 % (0.0-1.0); %Eosinophils 0.2 % (0.0-10.0); %Monocytes 8.8 % (0.0-10.0); %Neutrophils 76.9 % (42.0-75.0); Hemoglobin 12.6 g/dL (14.0-18.0); Mean Corpuscular HGB CONC 32.5 g/dL (32.0-36.0); Mean Corpuscular Hemoglobin 30.5 pg (27.0-31.0); Mean Corpuscular Volume 93.8 fL (78.0-98.0); Mean Platelet Volume 9.9 fL (7.4-10.4); Platelet Count 134 thou/uL (130-400); RBC Distribution Width 12.5 % (11.5-14.5); Red Blood Cell (RBC) Count 4.14 mill/uL (4.70-6.10); White Blood Cell (WBC) Count 9.4 thou/uL (4.8-10.8)
[2019-05-03] MEDS: Morphine 2 MG/ML SYRINGE SLOW IVP PRN ×4 (09:08→23:02)
[2019-05-03 09:11] LABS: Anion Gap 16 mmol/L (10-20); BUN (Urea Nitrogen) 33 mg/dL (8.4-25.7); Calc. Creatinine Clearance 53 mL/min (70-130); Calcium 8.7 mg/dL (7.8-10.44); Carbon Dioxide 28 mmol/L (23-31); Chloride 106 mmol/L (98-107); Estimated GFR-MDRD 58; Glucose 93 mg/dL (83-110); Potassium 3.8 mmol/L (3.5-5.1); Sodium 146 mmol/L (136-145)
--- NOTE | 2019-05-03 10:23 | RAD ---
Portable frontal chest radiograph: 05/03/2019 COMPARISON: 05/02/2019 HISTORY: Pneumonia FINDINGS: Stable left-sided vascular catheter and nasogastric tube. No pneumothorax or pleural fluid. No focal consolidation or alveolar edema. Mild patchy opacity noted in the medial left base and the right infrahilar region, nonspecific. This may represent mild airspace disease or volume loss. IMPRESSION: Portable chest radiograph as detailed above.
[2019-05-03] MEDS ORDERED: methylPREDNISolone Sod Succ 40 MG VIAL IVP SCH (11:15)
[2019-05-03] MEDS ORDERED: Sodium Chloride 0.45% 1,000 ML IV SCH (11:15)
[2019-05-03] MEDS: 1/2 NS w/KCL 20 mEq 1,000 ML IV SCH (13:00)
--- NOTE | 2019-05-03 13:52 | PDOC.HOSPP ---
- Subjective Encounter Date: 05/03/19 Encounter Time: 13:50 Subjective: restless, on sedation - Objective Vital Signs & Weight: Vital Signs (12 hours) Temp Pulse Resp BP Pulse Ox 05/03/19 12:46 88 26 H 05/03/19 11:00 98.7 F 05/03/19 10:42 90 20 05/03/19 07:59 94 L 05/03/19 07:00 99.0 F 05/03/19 05:00 97.8 F 05/03/19 03:47 79 173/99 H Weight Admit Weight 182 lb 8 oz Weight 182 lb 8 oz Most Recent Monitor Data Heart Rate from ECG 90 NIBP 134/58 NIBP BP-Mean 83 Respiration from ECG 25 SpO2 91 I&O: 05/02/19 05/03/19 05/04/19 06:59 06:59 06:59 Intake Total 3610 2064 810 Output Total 4050 1795 290 Balance -440 269 520 Result Diagrams: 05/03/19 08:37 05/03/19 08:37 Hospitalist ROS - Medication Medications: Active Medications Generic Name Dose Route Start Last Admin Trade Name Freq PRN Reason Stop Dose Admin Albuterol/Ipratropium 3 ml 05/03/19 13:00 05/03/19 12:46 Duoneb NEB 3 ml [id number] DONALD Administration Enoxaparin Sodium 40 mg 04/30/19 21:00 05/02/19 23:31 Lovenox SC Not Given 2100 DONALD Haloperidol Lactate 5 mg 05/02/19 13:39 05/03/19 13:44 Haldol SLOW IVP 5 mg Q6H PRN Administration Agitation Hydralazine HCl 10 mg 04/30/19 18:32 05/02/19 22:21 Apresoline SLOW IVP 10 mg Q4H PRN Administration SBP > 170 or DBP > 100 Levofloxacin 500 mg/ Device 100 mls @ 100 mls/hr 05/03/19 09:00 05/03/19 09: 10 IVPB 05/07/19 09:59 100 mls 0900 DONALD Administration Dexmedetomidine HCl 200 mcg/ 50 mls @ 0 mls/hr 05/03/19 11:15 05/03/19 11:23 Sodium Chloride IVPB 50 mls INF DONALD Administration Protocol Titrate Potassium Chloride/Sodium Chloride 1,000 mls @ 75 mls/hr 05/03/19 11:45 05/03 13:00 1/2 Ns W/Kcl 20 Meq IV 1,000 mls .[id number] DONALD Administration Ketorolac Tromethamine 15 mg 04/30/19 18:37 05/02/19 09:16 Toradol IVP 05/05/19 18:38 15 mg Q6H PRN Administration Pain Morphine Sulfate 2 mg 04/30/19 18:32 05/03/19 12:40 Morphine SLOW IVP 2 mg Q2H PRN Administration Mild Pain (1-3) Morphine Sulfate 4 mg 04/30/19 18:32 05/03/19 00:11 Morphine SLOW IVP 4 mg Q2H PRN Administration Moderate Pain (4-6) Neomycin/Polymyxin/Bacitracin 0 gm 05/01/19 13:23 05/02/19 09:16 Triple Antibiotic TOP 1 gm BIDPRN PRN Administration INFECTION Pantoprazole Sodium 40 mg 05/01/19 09:00 05/03/19 08:41 Protonix IVP 40 mg DAILY DONALD Administration Sodium Chloride 10 ml 04/30/19 18:32 05/03/19 08:41 Flush - Normal Saline IVF 10 ml PRN PRN Administration Saline Flush Sodium Chloride 10 ml 04/30/19 18:42 05/01/19 08:01 Normal Saline Pf FS 10 ml PRN PRN Administration RECONSTITUTION - Exam Neck: no JVD Heart: RRR, no murmur Respiratory - other findings: coarse BS with rhonchi Gastrointestinal: soft, non-tender, normal bowel sounds Extremities: no edema Hosp A/P (1) HTN (hypertension) Code(s): I10 - ESSENTIAL (PRIMARY) HYPERTENSION Status: Acute (2) CKD (chronic kidney disease), stage III Code(s): N18.3 - CHRONIC KIDNEY DISEASE, STAGE 3 (MODERATE) Status: Acute (3) Acute metabolic encephalopathy Code(s): G93.41 - METABOLIC ENCEPHALOPATHY Status: Acute (4) Small bowel obstruction Code(s): K56.609 - UNSP INTESTNL OBST, UNSP TO PARTIAL VERSUS COMPLETE OBST Status: Acute - Plan cont iv fluids cont iv antibx CLARKE with TSH, cortiso, ammonia
--- NOTE | 2019-05-03 13:55 | CON ---
DATE OF CONSULTATION: 05/03/2019 SERVICE: Pulmonary Medicine. HISTORY OF PRESENT ILLNESS: The patient is an 83-year-old white male with past medical history significant for small-bowel obstruction. He presented to the emergency department on April 30, 2019, with cramping abdominal discomfort. He was put in the hospital for conservative treatment of a possible small-bowel obstruction. He failed conservative therapy. His course was complicated by a fall that required stitches in order to close laceration on the forehead. A CT of the head at that time did not demonstrate any significant ASSISTANT QUALITY MANAGER injury. Ultimately, he failed conservative measures and underwent a lysis of adhesion on May 02, 2019. Postoperatively, he developed a fairly dense delirium and was brought down to the ICU because it was too much to handle on the floor. He cannot provide much in the way of historical elements. He indicates that he does not drink, use illicit drugs, or tobacco products. We have never known of any delirious process that has occurred before. There is no history of dementia. He denies any current cough, fevers, chills, shortness of breath, nausea, or vomiting. He is agitated and required multiple restraints in order to prevent from hurting himself and staff members. He is a touch better than he was previously and able to follow some simple commands. He has been noted to move all 4 extremities with purpose. Otherwise, he cannot provide any additional elements of the history. PAST MEDICAL HISTORY: 1. Hypertension. 2. Dyslipidemia. 3. Osteoarthritis. 4. Polycythemia. 5. Gout. 6. Major depressive disorder. 7. Gastroesophageal reflux disease. 8. Erectile dysfunction. PAST SURGICAL HISTORY: 1. Ear tube placement. 2. C-spine fusion. 3. Right rotator cuff surgery. 4. Left knee arthroscopy. 5. Right inguinal hernia repair. 6. Right robotic colectomy. 7. Colonoscopies. 8. Lysis of adhesion. ALLERGIES: IBUPROFEN, ASPIRIN. MEDICATIONS: List of his inpatient medications were reviewed. Multiple updates were made at this time. SOCIAL HISTORY: Negative for alcohol, tobacco, or illicit drug use. FAMILY HISTORY: Noncontributory. REVIEW OF SYSTEMS: General; head, ears, eyes, nose, throat; cardiovascular; respiratory; GI; ; musculoskeletal; neurologic; and skin are negative except as mentioned in the HPI. PHYSICAL EXAMINATION: VITAL SIGNS: Afebrile. Pulse 90, blood pressure 103/72, respirations 18, saturation 93%, currently on 3 L nasal cannula. GENERAL: The patient is awake. He is alert, but agitated. He has no specific complaints currently, but is constantly thrashing about pulling on lines and tubes. HEENT: Normocephalic and atraumatic. Sclerae white. Conjunctivae pink. Oral mucosa is moist without lesions. LUNGS: Extensive rhonchi are present with no significant no significant prolongation in the expiratory phase. No wheezing or crackles are appreciated. HEART: Normal rate, regular. ABDOMEN: Soft, nontender, nondistended. Bowel sounds are hypoactive. MUSCULOSKELETAL: No cyanosis or clubbing. There is no pitting. He has a little bit of tenting. NEUROLOGIC: Grossly nonfocal. He is diffusely agitated. LABORATORY DATA: WBC 9.4, hemoglobin 12.6, platelets 134,000. Creatinine 1.20 and gently downtrending. Sodium is 146, BUN 33. Urinalysis is positive for pyuria and hematuria. There is 3+ blood, ketones now present, and only 1+ bacteria is noted. IMAGING DATA: 1. Chest x-ray demonstrates enteric catheter coursing midline and below the level of the diaphragm. There is a left subclavian central venous catheter in good position. Free air is under the diaphragm on the right. 2. CT of the brain demonstrates no intracranial hemorrhage. 3. Abdominal x-ray previously demonstrated small bowel obstruction. This was prior to the surgical intervention. ASSESSMENT: 1. Acute hypoxic respiratory failure. 2. Acute bronchitis. 3. Delirium, agitated. 4. Small bowel obstruction, status post lysis of adhesion. 5. History of right-sided robotic hemicolectomy. DISCUSSION AND PLAN: The patient will remain in the ICU. We will attempt to give him some Precedex to see if this improves his agitation. If it does, it will be continued. If not, additional maneuvers will be attempted. We will put him on scheduled nebulized medications. I will give him a brief course of steroids and antibiotics directed at a possible bronchitis. Pulmonary/Critical Care will continue to follow very closely. The patient will remain in the ICU until his mentation improves slightly to the point where he can be managed on the floor. Ultimately, we have to get as many lines and tubes out of this raj as possible to decrease the things that are driving his delirium. 70 minutes have been devoted to this patient in various activities. I personally reviewed all imaging studies and laboratory data noted within this document. For fifty percent of this time, I was interacting with the patient at the bedside or coordinating care with the care team. For the remainder of the time I was immediately available to the patient in the hospital unit. Job ID: [id number] MTDD
[2019-05-03 15:01] LABS: Thyroid Stimulating Hormone 3.5213 uIU/mL (0.35-4.94)
[2019-05-03] MEDS: Enoxaparin Sodium 40 MG/0.4 ML SYRINGE SC SCH (21:30)
[2019-05-04] MEDS: Morphine 2 MG/ML SYRINGE SLOW IVP PRN (01:59)
[2019-05-04] MEDS: 1/2 NS w/KCL 20 mEq 1,000 ML IV SCH ×3 (01:59→16:10)
[2019-05-04] MEDS: Haloperidol Lactate 5 MG/ML VIAL SLOW IVP PRN ×4 (02:07→21:04)
[2019-05-04 05:10] LABS: Phosphorus 3.1 mg/dL (2.3-4.7)
[2019-05-04 05:50] LABS: Anion Gap 20 mmol/L (10-20); BUN (Urea Nitrogen) 30 mg/dL (8.4-25.7); Calc. Creatinine Clearance 63 mL/min (70-130); Calcium 8.8 mg/dL (7.8-10.44); Carbon Dioxide 22 mmol/L (23-31); Chloride 107 mmol/L (98-107); Estimated GFR-MDRD 70; Glucose 107 mg/dL (83-110); Magnesium 2.2 mg/dL (1.6-2.6); Potassium 3.9 mmol/L (3.5-5.1); Sodium 145 mmol/L (136-145)
[2019-05-04] MEDS: methylPREDNISolone Sod Succ 40 MG VIAL IVP SCH (08:48)
[2019-05-04] MEDS: Pantoprazole 40 MG VIAL IVP SCH (08:48)
[2019-05-04] MEDS ORDERED: clonazePAM 0.5 MG TAB PO SCH (09:15)
--- NOTE | 2019-05-04 09:35 | PRG ---
DATE OF SERVICE: 05/04/2019 SERVICE: Pulmonary Medicine. INTERVAL HISTORY: The patient got put on Precedex yesterday. It did not make him cool or collected, but it did have a significant improvement and impact on his mentation. He is much more directable now. We can actually have some conversations with him. Arterial line and Pina catheter were removed yesterday. NG tube output was quite low. The patient assisted us in removing this device. Otherwise, there were no significant overnight events. He remains restrained, but his restraints are minimize to two mittens at this point. PHYSICAL EXAMINATION: VITAL SIGNS: Afebrile, pulse 64, blood pressure 134/95, respirations 18, and saturation 98% on 3 L nasal cannula. GENERAL: The patient is awake and alert, in no apparent distress. LUNGS: Excellent air entry without any prolonged expiratory phase or wheezing present. The rhonchi are much improved. HEART: Normal rate and regular. ABDOMEN: Soft, nontender, and nondistended. Bowel sounds are positive. MUSCULOSKELETAL: No cyanosis or clubbing. There is no pitting in the bilateral lower extremities. NEUROLOGIC: Grossly nonfocal. LABORATORY DATA: Creatinine 1.01. Basic metabolic profile is otherwise unremarkable. Phosphorus and magnesium fall within normal limits. Ammonia is fine, cortisol is fine, TSH is fine. Urinalysis is positive for pyuria, which was not present on presentation. Urine culture, however, is negative to date. ASSESSMENT: 1. Acute hypoxic respiratory failure, resolving. 2. Acute bronchitis, much improved. 3. Delirium, agitated, but improving. 4. Small-bowel obstruction, status post lysis of adhesions. 5. History of right-sided robotic hemicolectomy. DISCUSSION AND PLAN: The patient is doing much better from a respiratory standpoint. We are going to see if we can introduce some of the p.o. psychiatric medications to him to see if we can level him out slightly. He will need to remain in the ICU for the time being. We will try to wean oxygen away and get rid of that device. If we are feeling break perhaps later this afternoon, we will start getting him into a chair and showing him the daylight. Job ID: [id number]
--- NOTE | 2019-05-04 11:46 | PDOC.HOSPP ---
- Subjective Encounter Date: 05/04/19 Encounter Time: 11:45 Subjective: confused , restless - Objective Vital Signs & Weight: Vital Signs (12 hours) Temp Pulse Resp Pulse Ox 05/04/19 07:46 100 05/04/19 07:44 64 18 98 05/04/19 07:00 97.9 F 05/04/19 04:00 97.4 F L 05/04/19 00:13 100 05/04/19 00:09 68 18 98 05/04/19 00:00 97.6 F Weight Admit Weight 182 lb 8 oz Weight 179 lb 10.828 oz Most Recent Monitor Data Heart Rate from ECG 91 NIBP 149/74 NIBP BP-Mean 99 Respiration from ECG 27 SpO2 95 I&O: 05/03/19 05/04/19 05/05/19 06:59 06:59 06:59 Intake Total 2064 2253.1 Output Total 1795 1000 60 Balance 269 1253.1 -60 Result Diagrams: 05/03/19 08:37 05/04/19 03:35 Hospitalist ROS - Medication Medications: Active Medications Generic Name Dose Route Start Last Admin Trade Name Freq PRN Reason Stop Dose Admin Albuterol/Ipratropium 3 ml 05/03/19 13:00 05/04/19 07:44 Duoneb NEB 3 ml [id number] DONALD Administration Enoxaparin Sodium 40 mg 04/30/19 21:00 05/03/19 21:30 Lovenox SC 40 mg 2100 DONALD Administration Haloperidol Lactate 5 mg 05/02/19 13:39 05/04/19 08:47 Haldol SLOW IVP 5 mg Q6H PRN Administration Agitation Hydralazine HCl 10 mg 04/30/19 18:32 05/02/19 22:21 Apresoline SLOW IVP 10 mg Q4H PRN Administration SBP > 170 or DBP > 100 Levofloxacin 500 mg/ Device 100 mls @ 100 mls/hr 05/03/19 09:00 05/04/19 08: 48 IVPB 05/07/19 09:59 100 mls 0900 DONALD Administration Dexmedetomidine HCl 200 mcg/ 50 mls @ 0 mls/hr 05/03/19 11:15 05/04/19 07:48 Sodium Chloride IVPB 50 mls INF DONALD Administration Protocol Titrate Ketorolac Tromethamine 15 mg 04/30/19 18:37 05/02/19 09:16 Toradol IVP 05/05/19 18:38 15 mg Q6H PRN Administration Pain Methylprednisolone Sodium Succinate 40 mg 05/04/19 09:00 05/04/19 08:48 Solu-Medrol IVP 05/07/19 09:01 40 mg DAILY DONALD Administration Morphine Sulfate 2 mg 04/30/19 18:32 05/04/19 01:59 Morphine SLOW IVP 2 mg Q2H PRN Administration Mild Pain (1-3) Morphine Sulfate 4 mg 04/30/19 18:32 05/03/19 00:11 Morphine SLOW IVP 4 mg Q2H PRN Administration Moderate Pain (4-6) Neomycin/Polymyxin/Bacitracin 0 gm 05/01/19 13:23 05/02/19 09:16 Triple Antibiotic TOP 1 gm BIDPRN PRN Administration INFECTION Pantoprazole Sodium 40 mg 05/01/19 09:00 05/04/19 08:48 Protonix IVP 40 mg DAILY DONALD Administration Sodium Chloride 10 ml 04/30/19 18:32 05/03/19 08:41 Flush - Normal Saline IVF 10 ml PRN PRN Administration Saline Flush Sodium Chloride 10 ml 04/30/19 18:42 05/01/19 08:01 Normal Saline Pf FS 10 ml PRN PRN Administration RECONSTITUTION - Exam Neck: no JVD Heart: RRR, no murmur Respiratory - other findings: scattered rhonchi Gastrointestinal: soft, non-distended, normal bowel sounds Extremities: no edema Hosp A/P (1) HTN (hypertension) Code(s): I10 - ESSENTIAL (PRIMARY) HYPERTENSION Status: Acute Qualifiers: Hypertension type: essential hypertension Qualified Code(s): I10 - Essential (primary) hypertension (2) CKD (chronic kidney disease), stage III Code(s): N18.3 - CHRONIC KIDNEY DISEASE, STAGE 3 (MODERATE) Status: Chronic (3) Acute metabolic encephalopathy Code(s): G93.41 - METABOLIC ENCEPHALOPATHY Status: Acute (4) Small bowel obstruction Code(s): K56.609 - UNSP INTESTNL OBST, UNSP TO PARTIAL VERSUS COMPLETE OBST Status: Acute - Plan TSH, cortisol, ammonia all normal CT brain 05/02- no Acute process etiology of encephalopathymost likely related to age/stress
[2019-05-04] MEDS: Morphine 4 MG/ML VIAL SLOW IVP PRN ×2 (12:35→22:26)
[2019-05-04] MEDS: clonazePAM 0.5 MG TAB PO SCH (21:04)
[2019-05-04] MEDS: Zonisamide 100 MG CAP PO SCH (21:04)
[2019-05-04] MEDS: Enoxaparin Sodium 40 MG/0.4 ML SYRINGE SC SCH (21:04)
--- NOTE | 2019-05-04 23:02 | PRG ---
DATE OF SERVICE: 05/04/2019 SUBJECTIVE: Mr. Stapleton remains in the Intensive Care Unit. When I saw him this morning, he is still thoroughly confused and agitated. He had pulled out his NG tube this morning. He had mittens placed on his hands to keep him from pulling at other things. At nurse's request, since he had good urine output, I agreed with removing his Pina catheter also in attempt to help calm him down. He is being followed by Critical Care and Dr. Walton has been of great assistance in helping. He has been on Precedex, but I am not sure this has made much of a difference in terms of his mental status. The patient is completely unable to contribute to his current history. PHYSICAL EXAMINATION: VITAL SIGNS: He remains afebrile, his pulse is regular in the 80s. Blood pressure is slightly hypertensive at 168/70. His oxygen saturation is 94%. LUNGS: Clear to auscultation. CARDIAC: Regular rate and rhythm. ABDOMEN: His incisions are healing nicely. I could not really hear any bowel sounds this morning. He does not have any focal tenderness to palpation. LABORATORY DATA: His basic metabolic panel was unremarkable. His creatinine is normal at 1.0. His CBC is also essentially normal with a white blood cell count of 9.4 and hemoglobin of 12.6. ASSESSMENT: He is stable following the surgery for small bowel obstruction. He remains thoroughly confused and agitated. He had these symptoms prior to his surgery. He has certainly improved from a respiratory standpoint. Hopefully as his mental status improves, will be able to begin to advance his nutrition. I want physical therapy to work with him as well. Job ID: [id number]
[2019-05-05] MEDS: Morphine 4 MG/ML VIAL SLOW IVP PRN ×2 (02:50→05:45)
[2019-05-05] MEDS: 1/2 NS w/KCL 20 mEq 1,000 ML IV SCH ×2 (03:23→13:45)
[2019-05-05 04:28] LABS: #Lymphocytes 0.7 thou/uL (1.20-3.40); #Monocytes 0.8 thou/uL (0.11-0.59); #Neutrophils 8.3 thou/uL (1.40-6.50); %Basophils 0.2 % (0.0-1.0); %Eosinophils 0.3 % (0.0-10.0); %Monocytes 7.9 % (0.0-10.0); %Neutrophils 84.6 % (42.0-75.0); Hemoglobin 11.2 g/dL (14.0-18.0); Mean Corpuscular HGB CONC 31.5 g/dL (32.0-36.0); Mean Corpuscular Hemoglobin 29.6 pg (27.0-31.0); Mean Corpuscular Volume 93.9 fL (78.0-98.0); Platelet Count 125 thou/uL (130-400); RBC Distribution Width 12.7 % (11.5-14.5); Red Blood Cell (RBC) Count 3.79 mill/uL (4.70-6.10); White Blood Cell (WBC) Count 9.8 thou/uL (4.8-10.8)
[2019-05-05] MEDS: Haloperidol Lactate 5 MG/ML VIAL SLOW IVP PRN ×2 (04:49→14:20)
[2019-05-05 04:51] LABS: Anion Gap 17 mmol/L (10-20); BUN (Urea Nitrogen) 28 mg/dL (8.4-25.7); Calc. Creatinine Clearance 61 mL/min (70-130); Calcium 8.7 mg/dL (7.8-10.44); Carbon Dioxide 21 mmol/L (23-31); Chloride 110 mmol/L (98-107); Estimated GFR-MDRD 69; Glucose 110 mg/dL (83-110); Potassium 4.1 mmol/L (3.5-5.1); Sodium 144 mmol/L (136-145)
[2019-05-05] MEDS: Zonisamide 100 MG CAP PO SCH ×2 (09:07→20:42)
[2019-05-05] MEDS: Pantoprazole 40 MG VIAL IVP SCH (09:07)
[2019-05-05] MEDS: methylPREDNISolone Sod Succ 40 MG VIAL IVP SCH (09:07)
[2019-05-05] MEDS: clonazePAM 0.5 MG TAB PO SCH (09:08)
--- NOTE | 2019-05-05 11:05 | PRG ---
DATE OF SERVICE: 05/05/2019 SERVICE: Pulmonary Medicine. INTERVAL HISTORY: The patient is doing poorly from the mentation standpoint. He is moving all 4 extremities. He has been combative intermittently with hypersedation. Otherwise, there has been no interval change to his condition. He is not passing any gas. He is not having any vomiting issues either. His gut has yet to be to trialed. He was able to take a little bit of medication by mouth yesterday. PHYSICAL EXAMINATION: VITAL SIGNS: Afebrile, pulse 67, blood pressure 130/73, respirations 23, saturation 97% on 3 L nasal cannula. GENERAL: The patient is awake and alert, in no apparent distress. LUNGS: Decent air entry. Rhonchi are present. Slightly prolonged expiratory phase is noted. No wheezing or crackles appreciated. HEART: Normal rate and regular. ABDOMEN: Soft, nontender, and nondistended. Bowel sounds are hypoactive. : No Pina catheter in place. NEUROLOGIC: Grossly nonfocal. He moves all 4 extremities. He is speaking, with a little bit of gentle stimulation. LABORATORY DATA: WBC 9.8, hemoglobin 11.2, and platelets 125,000 and gently downtrending. Creatinine 1.02 and BUN 28. Basic metabolic profile is otherwise stable or unremarkable. Bicarb 21 and gently downtrending. Anion gap seems to be improving. Urine culture is negative to date. ASSESSMENT: 1. Acute hypoxic respiratory failure. 2. Acute bronchitis, improved. 3. Delirium, agitated. 4. Small bowel obstruction, status post lysis of adhesions. DISCUSSION AND PLAN: We will continue our mobilization efforts. We will put him in a chair during the daytime, and make certain that the lights are on. At night, we will do our best to minimize distraction in the ICU. Any lines or tubes that he can get away from will be best. We will continue to encourage him to take some of his psychiatric medications, though it is proving challenging given his level of orientation. He will need to remain in the ICU until some of these mentation issues improve. From my perspective, however, he would likely do fine in the step-down unit. Job ID: [id number]
[2019-05-05 15:00] LABS: Actual Bicarbonate (HCO3a) 14.7 mEq/L (22-28); CO2 Tension 26.3 mmHg (35.0-45.0); Calcium, Ionized 1.19 mmol/L (1.12-1.30); Carboxyhemoglobin (COHb) 0.8 gm% (0.0-3.0); Hemoglobin (Hb) 12.9 g/dL (14.0-18.0); O2 Tension (PaO2) 61.7 mmHg (> 60.0); Potassium - ABG Lab 4.26 mmol/L (3.70-5.30); pH, Arterial 7.37 (7.35-7.45)
[2019-05-05 15:01] LABS: ALV-art Gradient 340.355 (0-20); Puncture Site RBA
[2019-05-05] MEDS ORDERED: Midazolam HCl 2 mg/2 ml Vial ONE (15:13)
[2019-05-05] MEDS ORDERED: Morphine 2 MG/ML SYRINGE SLOW IVP PRN (16:43)
[2019-05-05] MEDS ORDERED: fentaNYL Citrate/PF 2,000 MCG in Sodium Chloride 0.9% 60 ML IV SCH (16:43)
[2019-05-05] MEDS ORDERED: DISCONTINUE PREVIOUS NARCOTIC PAIN MEDICATIONS AND BENZODIAZEPINES FS SCH (16:43)
[2019-05-05] MEDS ORDERED: Lorazepam 2 MG/ML VIAL SLOW IVP PRN (16:43)
[2019-05-05] MEDS ORDERED: Propofol BOLUS 1,000 MG/100 ML VIAL IV PRN (16:43)
[2019-05-05] MEDS ORDERED: Fentanyl BOLUS 250 ML IVPB PRN (16:43)
[2019-05-05] MEDS ORDERED: Sodium Chloride 0.9% 1,000 ML IV SCH (16:45)
[2019-05-05] MEDS: Propofol 1,000 MG/100 ML VIAL IV PRN ×2 (16:49→21:31)
[2019-05-05 16:55] LABS: Base Excess (BEa) -10.7 mEq/L (-2.0 to +3.0); Calcium, Ionized 1.18 mmol/L (1.12-1.30); Carboxyhemoglobin (COHb) 0.2 gm% (0.0-3.0); Hemoglobin (Hb) 11.8 g/dL (14.0-18.0); O2 Tension (PaO2) 195.7 mmHg (> 60.0); Potassium - ABG Lab 4.09 mmol/L (3.70-5.30); pH, Arterial 7.36 (7.35-7.45)
[2019-05-05 17:00] LABS: ALV-art Gradient 487.675 (0-20); CO2 Tension 23.7 mmHg (35.0-45.0); Puncture Site RRA
[2019-05-05] MEDS: Haloperidol Lactate 5 MG/ML VIAL IM SCH (20:41)
[2019-05-05] MEDS: Enoxaparin Sodium 40 MG/0.4 ML SYRINGE SC SCH (20:42)
[2019-05-06] MEDS: Haloperidol Lactate 5 MG/ML VIAL IM SCH ×6 (00:25→19:41)
[2019-05-06] MEDS: 1/2 NS w/KCL 20 mEq 1,000 ML IV SCH ×3 (01:36→21:52)
[2019-05-06] MEDS: Propofol 1,000 MG/100 ML VIAL IV PRN ×4 (02:57→22:01)
[2019-05-06 05:26] LABS: Phosphorus 3.6 mg/dL (2.3-4.7)
[2019-05-06 05:42] LABS: Anion Gap 16 mmol/L (10-20); BUN (Urea Nitrogen) 29 mg/dL (8.4-25.7); Calc. Creatinine Clearance 60 mL/min (70-130); Calcium 8.5 mg/dL (7.8-10.44); Carbon Dioxide 19 mmol/L (23-31); Chloride 113 mmol/L (98-107); Estimated GFR-MDRD 66; Glucose 147 mg/dL (83-110); Magnesium 2.3 mg/dL (1.6-2.6); Potassium 4.3 mmol/L (3.5-5.1); Sodium 144 mmol/L (136-145)
[2019-05-06 06:53] LABS: Base Excess (BEa) -7.1 mEq/L (-2.0 to +3.0); CO2 Tension 29.7 mmHg (35.0-45.0); Hemoglobin (Hb) 11.6 g/dL (14.0-18.0); O2 Tension (PaO2) 82.3 mmHg (> 60.0); Potassium - ABG Lab 4.38 mmol/L (3.70-5.30); pH, Arterial 7.38 (7.35-7.45)
[2019-05-06 06:55] LABS: Puncture Site RRA
[2019-05-06 06:56] LABS: ALV-art Gradient 308.375 (0-20)
[2019-05-06] MEDS: Zonisamide 100 MG CAP PO SCH ×2 (09:03→20:18)
[2019-05-06] MEDS: methylPREDNISolone Sod Succ 40 MG VIAL IVP SCH (09:05)
[2019-05-06] MEDS: Pantoprazole 40 MG VIAL IVP SCH (09:05)
--- NOTE | 2019-05-06 11:44 | PRG ---
DATE OF SERVICE: 05/06/2019 SUBJECTIVE: Mr. Stapleton is intubated and less agitated. OBJECTIVE: ABDOMEN: His abdomen is soft. He does have bowel sounds. His midline wound is healing well. ASSESSMENT: He is now intubated, status post lysis of adhesions with severe postop delirium and chronic dementia. PLAN: We will start trickle feeds today. I suspect those would be able to be advanced tomorrow. Job ID: [id number]
--- NOTE | 2019-05-06 14:44 | PDOC.HOSPP ---
- Subjective Encounter Date: 05/05/19 Encounter Time: 11:30 Subjective: pt up in chair very combative - Objective Vital Signs & Weight: Vital Signs (12 hours) Temp Pulse Resp Pulse Ox 05/06/19 14:00 26 H 05/06/19 13:00 61 05/06/19 12:00 21 H 05/06/19 11:00 98.1 F 05/06/19 10:19 66 05/06/19 10:00 25 H 05/06/19 08:00 25 H 98 05/06/19 07:00 98.5 F 05/06/19 06:48 62 05/06/19 06:00 19 05/06/19 04:00 97.7 F 20 Weight Admit Weight 182 lb 8 oz Weight 182 lb 12.211 oz Most Recent Monitor Data Heart Rate from ECG 66 NIBP 141/69 NIBP BP-Mean 93 Respiration from ECG 29 SpO2 97 I&O: 05/05/19 05/06/19 05/07/19 06:59 06:59 06:59 Intake Total 2636 4148 30 Output Total 1260 1280 265 Balance 1376 2868 -235 Result Diagrams: 05/05/19 03:40 05/06/19 04:05 Hospitalist ROS - Review of Systems Other: unable to perform - Medication Medications: Active Medications Generic Name Dose Route Start Last Admin Trade Name Freq PRN Reason Stop Dose Admin Albuterol/Ipratropium 3 ml 05/03/19 13:00 05/06/19 12:59 Duoneb NEB 3 ml [id number] DONALD Administration Enoxaparin Sodium 40 mg 04/30/19 21:00 05/05/19 20:42 Lovenox SC 40 mg 2100 DONALD Administration Haloperidol Lactate 5 mg 05/02/19 13:39 05/05/19 14:20 Haldol SLOW IVP 5 mg Q6H PRN Administration Agitation Haloperidol Lactate 5 mg 05/05/19 19:45 05/06/19 10:58 Haldol IM 5 mg Q4H DONALD Administration Hydralazine HCl 10 mg 04/30/19 18:32 05/02/19 22:21 Apresoline SLOW IVP 10 mg Q4H PRN Administration SBP > 170 or DBP > 100 Levofloxacin 500 mg/ Device 100 mls @ 100 mls/hr 05/03/19 09:00 05/06/19 09: 02 IVPB 05/07/19 09:59 100 mls 0900 DONALD Administration Potassium Chloride/Sodium Chloride 1,000 mls @ 100 mls/hr 05/04/19 09:11 10:59 1/2 Ns W/Kcl 20 Meq IV 1,000 mls .Q10H DONALD Administration Dexmedetomidine HCl 400 mcg/ 100 mls @ 0 mls/hr 05/04/19 12:45 05/06/19 05:55 Sodium Chloride IVPB 100 mls INF DONALD Administration Protocol Titrate Lorazepam 2 mg 05/05/19 16:43 05/06/19 11:28 Ativan SLOW IVP 06/04/19 16:43 2 mg Q1H PRN Administration Breakthrough agitation Methylprednisolone Sodium Succinate 40 mg 05/04/19 09:00 05/06/19 09:05 Solu-Medrol IVP 05/07/19 09:01 40 mg DAILY DONALD Administration Neomycin/Polymyxin/Bacitracin 0 gm 05/01/19 13:23 05/02/19 09:16 Triple Antibiotic TOP 1 gm BIDPRN PRN Administration INFECTION Pantoprazole Sodium 40 mg 05/01/19 09:00 05/06/19 09:05 Protonix IVP 40 mg DAILY DONALD Administration Propofol 1,000 mg 05/05/19 16:43 05/06/19 10:02 Diprivan IV 06/04/19 16:43 1,000 mg INF PRN Administration TO ACHIEVE GOAL RASS Protocol Quetiapine Fumarate 25 mg 05/05/19 21:00 05/05/19 20:42 Seroquel PO 25 mg HS DONALD Administration Sertraline HCl 100 mg 05/05/19 09:00 05/06/19 09:04 Zoloft PO 100 mg DAILY DONALD Administration Sodium Chloride 10 ml 04/30/19 18:32 05/03/19 08:41 Flush - Normal Saline IVF 10 ml PRN PRN Administration Saline Flush Sodium Chloride 10 ml 04/30/19 18:42 05/01/19 08:01 Normal Saline Pf FS 10 ml PRN PRN Administration RECONSTITUTION Zonisamide 100 mg 05/04/19 21:00 05/06/19 09:03 Zonisamide PO 100 mg BID DONALD Administration - Exam Eye - other findings: agitated Neck: negative: supple, symmetric, no JVD, no thyromegaly, no lymphadenopathy, no carotid bruit, JVD Heart: negative: RRR, no murmur, no gallops, no rubs, normal peripheral pulses, irregular, diminshed peripheral pulses, murmur present, II/IV, III/IV Respiratory: negative: CTAB, no wheezes, no rales, no ronchi, normal chest expansion, no tachypnea, normal percussion, rales, rhonchi, tachypneic, wheezes Hosp A/P (1) Acute metabolic encephalopathy Code(s): G93.41 - METABOLIC ENCEPHALOPATHY Status: Acute (2) Depressed Code(s): F32.9 - MAJOR DEPRESSIVE DISORDER, SINGLE EPISODE, UNSPECIFIED Status : Acute (3) Small bowel obstruction Code(s): K56.609 - UNSP INTESTNL OBST, UNSP TO PARTIAL VERSUS COMPLETE OBST Status: Acute (4) Delirium Code(s): R41.0 - DISORIENTATION, UNSPECIFIED Status: Acute - Plan pt is on many antipsy meds and per family has not been taking it since . will restart his oral meds and ask nurse to clamp ng if ok with surgery. I think this is delirium. He has no hx of drinking. will rescan his head per family request due to his fall yesterday, however i think his current symptoms are due to delirium. will also disconitnue ativan which worsens mental status and put him on haldol as needed. Seroquel is also a another option for delirium but it is po. i will continue his klonopin which he takes at night. 05/05 pt post op very agitated in bed. will start his home meds.
--- NOTE | 2019-05-06 14:46 | PDOC.HOSPP ---
- Subjective Encounter Date: 05/06/19 Encounter Time: 09:55 Subjective: pt intubated - Objective Vital Signs & Weight: Vital Signs (12 hours) Temp Pulse Resp Pulse Ox 05/06/19 14:00 26 H 05/06/19 13:00 61 05/06/19 12:00 21 H 05/06/19 11:00 98.1 F 05/06/19 10:19 66 05/06/19 10:00 25 H 05/06/19 08:00 25 H 98 05/06/19 07:00 98.5 F 05/06/19 06:48 62 05/06/19 06:00 19 05/06/19 04:00 97.7 F 20 Weight Admit Weight 182 lb 8 oz Weight 182 lb 12.211 oz Most Recent Monitor Data Heart Rate from ECG 66 NIBP 141/69 NIBP BP-Mean 93 Respiration from ECG 29 SpO2 97 I&O: 05/05/19 05/06/19 05/07/19 06:59 06:59 06:59 Intake Total 2636 4148 30 Output Total 1260 1280 265 Balance 1376 2868 -235 Result Diagrams: 05/05/19 03:40 05/06/19 04:05 Hospitalist ROS - Review of Systems Other: unable to obtain - Medication Medications: Active Medications Generic Name Dose Route Start Last Admin Trade Name Freq PRN Reason Stop Dose Admin Albuterol/Ipratropium 3 ml 05/03/19 13:00 05/06/19 12:59 Duoneb NEB 3 ml [id number] DONALD Administration Enoxaparin Sodium 40 mg 04/30/19 21:00 05/05/19 20:42 Lovenox SC 40 mg 2100 DONALD Administration Haloperidol Lactate 5 mg 05/02/19 13:39 05/05/19 14:20 Haldol SLOW IVP 5 mg Q6H PRN Administration Agitation Haloperidol Lactate 5 mg 05/05/19 19:45 05/06/19 10:58 Haldol IM 5 mg Q4H DONALD Administration Hydralazine HCl 10 mg 04/30/19 18:32 05/02/19 22:21 Apresoline SLOW IVP 10 mg Q4H PRN Administration SBP > 170 or DBP > 100 Levofloxacin 500 mg/ Device 100 mls @ 100 mls/hr 05/03/19 09:00 05/06/19 09: 02 IVPB 05/07/19 09:59 100 mls 0900 DONALD Administration Potassium Chloride/Sodium Chloride 1,000 mls @ 100 mls/hr 05/04/19 09:11 10:59 1/2 Ns W/Kcl 20 Meq IV 1,000 mls .Q10H DONALD Administration Dexmedetomidine HCl 400 mcg/ 100 mls @ 0 mls/hr 05/04/19 12:45 05/06/19 05:55 Sodium Chloride IVPB 100 mls INF DONALD Administration Protocol Titrate Lorazepam 2 mg 05/05/19 16:43 05/06/19 11:28 Ativan SLOW IVP 06/04/19 16:43 2 mg Q1H PRN Administration Breakthrough agitation Methylprednisolone Sodium Succinate 40 mg 05/04/19 09:00 05/06/19 09:05 Solu-Medrol IVP 05/07/19 09:01 40 mg DAILY DONALD Administration Neomycin/Polymyxin/Bacitracin 0 gm 05/01/19 13:23 05/02/19 09:16 Triple Antibiotic TOP 1 gm BIDPRN PRN Administration INFECTION Pantoprazole Sodium 40 mg 05/01/19 09:00 05/06/19 09:05 Protonix IVP 40 mg DAILY DONALD Administration Propofol 1,000 mg 05/05/19 16:43 05/06/19 10:02 Diprivan IV 06/04/19 16:43 1,000 mg INF PRN Administration TO ACHIEVE GOAL RASS Protocol Quetiapine Fumarate 25 mg 05/05/19 21:00 05/05/19 20:42 Seroquel PO 25 mg HS DONALD Administration Sertraline HCl 100 mg 05/05/19 09:00 05/06/19 09:04 Zoloft PO 100 mg DAILY DONALD Administration Sodium Chloride 10 ml 04/30/19 18:32 05/03/19 08:41 Flush - Normal Saline IVF 10 ml PRN PRN Administration Saline Flush Sodium Chloride 10 ml 04/30/19 18:42 05/01/19 08:01 Normal Saline Pf FS 10 ml PRN PRN Administration RECONSTITUTION Zonisamide 100 mg 05/04/19 21:00 05/06/19 09:03 Zonisamide PO 100 mg BID DONALD Administration - Exam Neck: negative: supple, symmetric, no JVD, no thyromegaly, no lymphadenopathy, no carotid bruit, JVD Heart: negative: RRR, no murmur, no gallops, no rubs, normal peripheral pulses, irregular, diminshed peripheral pulses, murmur present, II/IV, III/IV Respiratory: negative: CTAB, no wheezes, no rales, no ronchi, normal chest expansion, no tachypnea, normal percussion, rales, rhonchi, tachypneic, wheezes Hosp A/P (1) Acute metabolic encephalopathy Code(s): G93.41 - METABOLIC ENCEPHALOPATHY Status: Acute (2) Depressed Code(s): F32.9 - MAJOR DEPRESSIVE DISORDER, SINGLE EPISODE, UNSPECIFIED Status : Acute (3) Small bowel obstruction Code(s): K56.609 - UNSP INTESTNL OBST, UNSP TO PARTIAL VERSUS COMPLETE OBST Status: Acute (4) Delirium Code(s): R41.0 - DISORIENTATION, UNSPECIFIED Status: Acute - Plan pt is on many antipsy meds and per family has not been taking it since . will restart his oral meds and ask nurse to clamp ng if ok with surgery. I think this is delirium. He has no hx of drinking. will rescan his head per family request due to his fall yesterday, however i think his current symptoms are due to delirium. will also disconitnue ativan which worsens mental status and put him on haldol as needed. Seroquel is also a another option for delirium but it is po. i will continue his klonopin which he takes at night. 05/05 pt post op very agitated in bed. will start his home meds. 05/06 pt was very agitated and was intubated. will monitor. He is on tube feeds. his home meds have been restarted.
--- NOTE | 2019-05-06 18:50 | PRG ---
DATE OF SERVICE: 05/06/2019 SUBJECTIVE: Alycia Stapleton remains mechanically ventilated. OBJECTIVE: VITAL SIGNS: His vital signs have been stable. His respiratory rate is in the teens. His FiO2 is 50%, blood pressure 133/66, and heart rate is 59. Intake and outputs; positive 1376 yesterday, positive 2868 today, required volume infusion after intubation yesterday. LUNGS: Remarkable for coarse equal breath sounds. HEART: Regular rhythm. ABDOMEN: Soft. EXTREMITIES: Without clubbing, cyanosis, or edema. ASSESSMENT AND PLAN: His son-in-law was there and I had a long discussion about Mr. Stapleton's functional status prior to this admission. He says his behavior has been becoming more aberrant and out of the ordinary with poor judgment. Apparently, they on a new home and borrowed somewhere between 150,000 and 183,000 dollars as a [place] loan. He also went to the bank and closed out an account and demanded that the prepared foods associate give him 35,000 dollars in jiang to take home. I am convinced that we are dealing with decompensated dementia. At this point, we will continue with mechanical ventilatory support. He is receiving Haldol around the clock. Job ID: [id number]
[2019-05-06] MEDS: Enoxaparin Sodium 40 MG/0.4 ML SYRINGE SC SCH (20:18)
--- NOTE | 2019-05-07 00:06 | OP ---
DATE OF PROCEDURE: 05/05/2019 I was called to bedside of Mr. Stapleton. Throughout the afternoon, he had been progressively more dyspneic, tachypneic, and starting to become progressively more confused. He was showing signs of fatigue. Haldol did not help. I recommended intubation. A fiberoptic bronchoscope was brought to the bedside. A bite block was placed in his mouth. His upper airway was visualized. Copious clear salivary secretions were encountered in his upper airway. The bronchoscope was passed into the trachea. Aspirated saliva was seen all the way down to his main geetha. This was suctioned clear. The endotracheal tube was easily advanced and secured above the main geetha. He was given a volume infusion and intubation to cover for the drop in blood pressure that would occur with sedation. He tolerated all of the above with no hypoxemia. His family was notified of the above. Job ID: [id number]
[2019-05-07] MEDS: Haloperidol Lactate 5 MG/ML VIAL IM SCH ×7 (01:24→23:21)
[2019-05-07] MEDS: Propofol 1,000 MG/100 ML VIAL IV PRN ×5 (04:52→23:21)
[2019-05-07 05:00] LABS: Anion Gap 12 mmol/L (10-20); BUN (Urea Nitrogen) 25 mg/dL (8.4-25.7); Calc. Creatinine Clearance 65 mL/min (70-130); Calcium 8.4 mg/dL (7.8-10.44); Carbon Dioxide 22 mmol/L (23-31); Chloride 111 mmol/L (98-107); Estimated GFR-MDRD 73; Glucose 118 mg/dL (83-110); Magnesium 2.2 mg/dL (1.6-2.6); Sodium 141 mmol/L (136-145)
[2019-05-07 05:35] LABS: Phosphorus 2.4 mg/dL (2.3-4.7)
[2019-05-07 08:07] LABS: Actual Bicarbonate (HCO3a) 21.6 mEq/L (22-28); Analyzer IN Cardio ER; Base Excess (BEa) -1.4 mEq/L (-2.0 to +3.0); CO2 Tension 30.8 mmHg (35.0-45.0); Calcium, Ionized 1.18 mmol/L (1.12-1.30); Carboxyhemoglobin (COHb) 0.4 gm% (0.0-3.0); Hemoglobin (Hb) 11.1 g/dL (14.0-18.0); O2 Tension (PaO2) 78.1 mmHg (> 60.0); Potassium - ABG Lab 3.84 mmol/L (3.70-5.30); pH, Arterial 7.46 (7.35-7.45)
[2019-05-07 08:13] LABS: Puncture Site RRA
[2019-05-07] MEDS: Zonisamide 100 MG CAP PO SCH ×2 (08:54→20:00)
[2019-05-07] MEDS: methylPREDNISolone Sod Succ 40 MG VIAL IVP SCH (09:08)
[2019-05-07] MEDS: Pantoprazole 40 MG VIAL IVP SCH (09:34)
[2019-05-07] MEDS: 1/2 NS w/KCL 20 mEq 1,000 ML IV SCH ×2 (09:34→15:46)
--- NOTE | 2019-05-07 10:37 | PRG ---
DATE OF SERVICE: 05/07/2019 SUBJECTIVE: No changes to Mr. Stapleton. He tolerated the tube feeds overnight. He is hemodynamically stable. OBJECTIVE: ABDOMEN: Soft, nontender, good bowel sounds. Wounds are healing well. No infection. ASSESSMENT: Respiratory insufficiency, intubated secondary to dementia, delirium. PLAN: Increase tube feeds to 20 mL an hour if he tolerates that, likely it will be increased towards goal tomorrow. Job ID: [id number]
--- NOTE | 2019-05-07 14:35 | PDOC.HOSPP ---
- Subjective Encounter Date: 05/07/19 Encounter Time: 10:00 Subjective: pt intubated - Objective Vital Signs & Weight: Vital Signs (12 hours) Temp Pulse Resp Pulse Ox 05/07/19 14:00 29 H 05/07/19 13:12 58 L 05/07/19 12:00 20 05/07/19 11:00 98.9 F 05/07/19 10:31 73 05/07/19 10:00 27 H 05/07/19 08:00 27 H 05/07/19 07:47 68 05/07/19 07:20 98 05/07/19 07:00 98.9 F 05/07/19 05:50 21 H 05/07/19 04:00 98.8 F 30 H Weight Admit Weight 182 lb 8 oz Weight 181 lb 10.574 oz Most Recent Monitor Data Heart Rate from ECG 72 NIBP 170/75 NIBP BP-Mean 106 Respiration from ECG 32 SpO2 99 I&O: 05/06/19 05/07/19 05/08/19 06:59 06:59 06:59 Intake Total 4148 3299 Output Total 1280 1155 455 Balance 2868 2144 -455 Result Diagrams: 05/05/19 03:40 05/07/19 04:10 Hospitalist ROS - Review of Systems Other: unable to obtain - Medication Medications: Active Medications Generic Name Dose Route Start Last Admin Trade Name Freq PRN Reason Stop Dose Admin Albuterol/Ipratropium 3 ml 05/03/19 13:00 05/07/19 13:12 Duoneb NEB 3 ml [id number] DONALD Administration Enoxaparin Sodium 40 mg 04/30/19 21:00 05/06/19 20:18 Lovenox SC 40 mg 2100 DONALD Administration Haloperidol Lactate 5 mg 05/02/19 13:39 05/05/19 14:20 Haldol SLOW IVP 5 mg Q6H PRN Administration Agitation Haloperidol Lactate 5 mg 05/05/19 19:45 05/07/19 11:24 Haldol IM 5 mg Q4H DONALD Administration Hydralazine HCl 10 mg 04/30/19 18:32 05/02/19 22:21 Apresoline SLOW IVP 10 mg Q4H PRN Administration SBP > 170 or DBP > 100 Potassium Chloride/Sodium Chloride 1,000 mls @ 100 mls/hr 05/04/19 09:11 09:34 1/2 Ns W/Kcl 20 Meq IV 1,000 mls .Q10H DONALD Administration Dexmedetomidine HCl 400 mcg/ 100 mls @ 0 mls/hr 05/04/19 12:45 05/07/19 11:06 Sodium Chloride IVPB 100 mls INF DONALD Administration Protocol Titrate Lorazepam 2 mg 05/05/19 16:43 05/06/19 11:28 Ativan SLOW IVP 06/04/19 16:43 2 mg Q1H PRN Administration Breakthrough agitation Neomycin/Polymyxin/Bacitracin 0 gm 05/01/19 13:23 05/02/19 09:16 Triple Antibiotic TOP 1 gm BIDPRN PRN Administration INFECTION Pantoprazole Sodium 40 mg 05/01/19 09:00 05/07/19 09:34 Protonix IVP 40 mg DAILY DONALD Administration Propofol 1,000 mg 05/05/19 16:43 05/07/19 11:25 Diprivan IV 06/04/19 16:43 1,000 mg INF PRN Administration TO ACHIEVE GOAL RASS Protocol Quetiapine Fumarate 25 mg 05/05/19 21:00 05/06/19 20:17 Seroquel PO 25 mg HS DONALD Administration Sertraline HCl 100 mg 05/05/19 09:00 05/07/19 08:54 Zoloft PO 100 mg DAILY DONALD Administration Sodium Chloride 10 ml 04/30/19 18:32 05/03/19 08:41 Flush - Normal Saline IVF 10 ml PRN PRN Administration Saline Flush Sodium Chloride 10 ml 04/30/19 18:42 05/01/19 08:01 Normal Saline Pf FS 10 ml PRN PRN Administration RECONSTITUTION Zonisamide 100 mg 05/04/19 21:00 05/07/19 08:54 Zonisamide PO 100 mg BID DONALD Administration - Exam Neck: negative: supple, symmetric, no JVD, no thyromegaly, no lymphadenopathy, no carotid bruit, JVD Heart: negative: RRR, no murmur, no gallops, no rubs, normal peripheral pulses, irregular, diminshed peripheral pulses, murmur present, II/IV, III/IV Respiratory: negative: CTAB, no wheezes, no rales, no ronchi, normal chest expansion, no tachypnea, normal percussion, rales, rhonchi, tachypneic, wheezes Hosp A/P (1) Acute metabolic encephalopathy Code(s): G93.41 - METABOLIC ENCEPHALOPATHY Status: Acute (2) Depressed Code(s): F32.9 - MAJOR DEPRESSIVE DISORDER, SINGLE EPISODE, UNSPECIFIED Status : Acute (3) Small bowel obstruction Code(s): K56.609 - UNSP INTESTNL OBST, UNSP TO PARTIAL VERSUS COMPLETE OBST Status: Acute (4) Delirium Code(s): R41.0 - DISORIENTATION, UNSPECIFIED Status: Acute - Plan pt is on many antipsy meds and per family has not been taking it since . will restart his oral meds and ask nurse to clamp ng if ok with surgery. I think this is delirium. He has no hx of drinking. will rescan his head per family request due to his fall yesterday, however i think his current symptoms are due to delirium. will also disconitnue ativan which worsens mental status and put him on haldol as needed. Seroquel is also a another option for delirium but it is po. i will continue his klonopin which he takes at night. 05/05 pt post op very agitated in bed. will start his home meds. 05/06 pt was very agitated and was intubated. will monitor. He is on tube feeds. his home meds have been restarted. 05/07 pt intubated, management per pulmonary. His feeds have been improved and with minimal residual. will check labs in am
[2019-05-07] MEDS: Enoxaparin Sodium 40 MG/0.4 ML SYRINGE SC SCH (20:00)
--- NOTE | 2019-05-07 22:18 | PRG ---
DATE OF SERVICE: 05/07/2019 SUBJECTIVE: Rachel Stapleton remains mechanically ventilated. He has a sedation holiday. He gets fairly agitated in spite of the fact that he is still receiving Haldol every 4 hours. OBJECTIVE: VITAL SIGNS: Oximetry is 98, blood pressure 138/73, respiratory rates in the teens, heart rate is 55. Intake and outputs; positive 2144. LUNGS: Clear anteriorly. HEART: Regular rhythm. ABDOMEN: Soft. EXTREMITIES: Without edema. LABORATORY DATA: Sodium 141, potassium 4, chloride 111, bicarb 22, BUN 25, creatinine 0.98. IMPRESSION: Respiratory failure secondary to decompensated dementia combined with retained secretions and inability to clear secretions. I do not anticipate that he will do well once he is extubated. His family has provided history that clearly in my opinion demonstrates significant amount of dementia. He recently took a loan from the [place] for home when they were living in a rental property and they had no debt. He also cashed out a bank account and demanded that he be allowed to take 35,000 dollars in jiang to home. I suspect it a minimum. His judgment is extremely poor, but he probably has significant dementia that is now decompensated. We will continue mechanical ventilation for now. Family in my opinion should make a decision not to reintubate him if he does not do well postextubation the next time. He remains on Seroquel and Haldol. I doubt clonazepam will lead to improvement of his current symptoms. He was on this prior to admission. Apparently, he also had a severe problem with anxiety. Job ID: [id number] Critical care 30 minutes MTDD
[2019-05-08] MEDS: Haloperidol Lactate 5 MG/ML VIAL IM SCH ×6 (04:02→22:49)
[2019-05-08] MEDS: 1/2 NS w/KCL 20 mEq 1,000 ML IV SCH ×2 (04:13→16:03)
[2019-05-08] MEDS: Propofol 1,000 MG/100 ML VIAL IV PRN (04:14)
[2019-05-08 04:51] LABS: #Eosinphils 0.1 thou/uL (0.0-0.7); #Lymphocytes 1.6 thou/uL (1.20-3.40); #Monocytes 0.6 thou/uL (0.11-0.59); #Neutrophils 8.6 thou/uL (1.40-6.50); %Basophils 0.3 % (0.0-1.0); %Eosinophils 0.6 % (0.0-10.0); %Lymphocytes 14.3 % (21.0-51.0); %Monocytes 5.2 % (0.0-10.0); %Neutrophils 79.6 % (42.0-75.0); Hemoglobin 10.5 g/dL (14.0-18.0); Mean Corpuscular HGB CONC 33.2 g/dL (32.0-36.0); Mean Corpuscular Hemoglobin 30.8 pg (27.0-31.0); Mean Corpuscular Volume 92.9 fL (78.0-98.0); Mean Platelet Volume 9.7 fL (7.4-10.4); Platelet Count 130 thou/uL (130-400); RBC Distribution Width 13.1 % (11.5-14.5); Red Blood Cell (RBC) Count 3.41 mill/uL (4.70-6.10); White Blood Cell (WBC) Count 10.8 thou/uL (4.8-10.8)
[2019-05-08 05:08] LABS: Anion Gap 8 mmol/L (10-20); BUN (Urea Nitrogen) 25 mg/dL (8.4-25.7); Calc. Creatinine Clearance 78 mL/min (70-130); Calcium 8.1 mg/dL (7.8-10.44); Carbon Dioxide 24 mmol/L (23-31); Chloride 110 mmol/L (98-107); Estimated GFR-MDRD Greater than 90; Glucose 118 mg/dL (83-110); Magnesium 2.1 mg/dL (1.6-2.6); Potassium 3.7 mmol/L (3.5-5.1); Sodium 138 mmol/L (136-145)
[2019-05-08 05:47] LABS: Phosphorus 2.9 mg/dL (2.3-4.7)
[2019-05-08 08:00] LABS: Actual Bicarbonate (HCO3a) 21.1 mEq/L (22-28); Base Excess (BEa) -2.1 mEq/L (-2.0 to +3.0); CO2 Tension 31.2 mmHg (35.0-45.0); Calcium, Ionized 1.19 mmol/L (1.12-1.30); Carboxyhemoglobin (COHb) 1.2 gm% (0.0-3.0); Hemoglobin (Hb) 11.2 g/dL (14.0-18.0); Potassium - ABG Lab 3.83 mmol/L (3.70-5.30); pH, Arterial 7.45 (7.35-7.45)
[2019-05-08 08:02] LABS: Puncture Site RB
[2019-05-08] MEDS: Pantoprazole 40 MG VIAL IVP SCH (08:39)
[2019-05-08] MEDS: Zonisamide 100 MG CAP PO SCH ×2 (08:39→19:55)
--- NOTE | 2019-05-08 12:33 | OP ---
DATE OF PROCEDURE: 05/05/2019 INDICATIONS FOR PROCEDURE: Mr. Stapleton has become progressively more encephalopathic as the day progressed. As he became more encephalopathic, he became more tachypneic and reached a point this afternoon where he was showing signs of respiratory muscle fatigue. I elected to intubate him. DESCRIPTION OF PROCEDURE: Bronchoscope was brought to the room. Oral bite block was placed in his mouth. He was Fiberoptically scoped. An endotracheal tube was easily inserted without difficulty. Copious clear secretions were encountered in his upper airway and in his trachea all the way down to both mainstem bronchi. These were suctioned clear. He was then sedated and connected to mechanical ventilation. His was notified of the change in his status. PHYSICAL EXAMINATION: VITAL SIGNS: His heart rates this evening now 77, respiratory rates in the high 20s to low 30s, oximetry is 92 blood pressure 113/60. LUNGS: Clear. HEART: Regular rhythm. ABDOMEN: Soft. EXTREMITIES: Without edema. LABORATORY DATA: Prior to intubation, his pH was 7.37, CO2 26, PO2 61. After intubation, pH 7.36, CO2 23, PO2 195. His FiO2 has been decreased. IMPRESSION: Respiratory failure secondary to agitation and encephalopathy, likely secondary to his advanced age and his recent operative procedure. We will follow with the other physicians caring for him. CRITICAL CARE TIME: Independent of procedure was 30 minutes. Job ID: [id number]
--- NOTE | 2019-05-08 13:26 | PRG ---
DATE OF SERVICE: 05/08/2019 SERVICE: Pulmonary Medicine. INTERVAL HISTORY: The patient is doing okay from Respiratory standpoint. He is tolerating a spontaneous breathing trial, on a sedation holiday. He is not able to provide any significant history, however. There were no significant overnight events. PHYSICAL EXAMINATION: VITAL SIGNS: Afebrile, pulse 71, blood pressure 132/63, respirations 6, saturation 97%, currently on 40% FiO2, and a PEEP of 5. GENERAL: The patient is intubated and sedated. HEENT: Normocephalic and atraumatic. Sclerae white. Conjunctivae pink. Oral mucosa is moist without lesions. LUNGS: Decent air entry. No prolonged expiratory phase or wheezing is appreciated. HEART: Normal rate and regular. ABDOMEN: Soft, nontender, nondistended. Bowel sounds are positive. MUSCULOSKELETAL: No cyanosis or clubbing. No pitting in the bilateral lower extremities. NEUROLOGIC: Grossly nonfocal. LABORATORY DATA: WBC 10.8, hemoglobin 10.5, platelets 130,000. PH of 7.45, pCO2 of 32, pO2 of 84, corresponding to a saturation of 96%. Basic metabolic profile is unremarkable. Magnesium and phosphorous fall within the normal limits. Urine culture is unremarkable to date. ASSESSMENT: 1. Acute hypoxic respiratory failure. 2. Acute bronchitis, resolved. 3. Delirium, agitated. 4. Small bowel obstruction, status post lysis of adhesions. DISCUSSION PLAN: I will put him on a spontaneous breathing trial. At the end of this thing, he will be considered for extubation if he meets criteria. I will repeat hemoglobin and hematocrit tomorrow morning, but otherwise give him a laboratory holiday. Potassium to be replaced today. As he has increasing tolerance for tube feeds, we will back off on our IV fluids. Critical care time: 30 minutes. Job ID: [id number] MTDD
--- NOTE | 2019-05-08 16:40 | PDOC.HOSPP ---
- Subjective Encounter Date: 05/08/19 Encounter Time: 14:30 Subjective: pt up in bed extubated - Objective Vital Signs & Weight: Vital Signs (12 hours) Temp Pulse Pulse Pulse Resp BP BP 05/08/19 15:00 98.3 F 05/08/19 14:26 82 83 148/87 H 05/08/19 13:36 05/08/19 12:25 26 H 05/08/19 12:00 21 H 05/08/19 11:12 72 167/76 H 05/08/19 11:00 98.9 F 05/08/19 10:00 17 05/08/19 08:00 21 H 05/08/19 07:49 64 151/78 H 05/08/19 07:33 05/08/19 07:00 98.7 F 05/08/19 06:00 23 H BP Pulse Ox Pulse Ox Pulse Ox 05/08/19 15:00 05/08/19 14:26 164/76 H 90 L 94 L 05/08/19 13:36 95 05/08/19 12:25 05/08/19 12:00 05/08/19 11:12 05/08/19 11:00 05/08/19 10:00 05/08/19 08:00 05/08/19 07:49 05/08/19 07:33 97 05/08/19 07:00 05/08/19 06:00 Weight Admit Weight 182 lb 8 oz Weight 182 lb 8.684 oz Most Recent Monitor Data Heart Rate from ECG 80 NIBP 145/67 NIBP BP-Mean 93 Respiration from ECG 28 SpO2 96 I&O: 05/07/19 05/08/19 05/09/19 06:59 06:59 06:59 Intake Total 3299 3415 30 Output Total 1155 1780 1295 Balance 2145 1635 1267 Result Diagrams: 05/08/19 04:08 05/08/19 04:08 Hospitalist ROS - Review of Systems Other: unable to obtain - Medication Medications: Active Medications Generic Name Dose Route Start Last Admin Trade Name Freq PRN Reason Stop Dose Admin Albuterol/Ipratropium 3 ml 05/03/19 13:00 05/08/19 13:04 Duoneb NEB 3 ml [id number] DONALD Administration Enoxaparin Sodium 40 mg 04/30/19 21:00 05/07/19 20:00 Lovenox SC 40 mg 2100 DONALD Administration Haloperidol Lactate 5 mg 05/02/19 13:39 05/05/19 14:20 Haldol SLOW IVP 5 mg Q6H PRN Administration Agitation Haloperidol Lactate 5 mg 05/05/19 19:45 05/08/19 16:03 Haldol IM 5 mg Q4H DONALD Administration Hydralazine HCl 10 mg 04/30/19 18:32 05/02/19 22:21 Apresoline SLOW IVP 10 mg Q4H PRN Administration SBP > 170 or DBP > 100 Dexmedetomidine HCl 400 mcg/ 100 mls @ 0 mls/hr 05/04/19 12:45 05/08/19 16:03 Sodium Chloride IVPB 100 mls INF DONALD Administration Protocol Titrate Potassium Chloride/Sodium Chloride 1,000 mls @ 75 mls/hr 05/08/19 12:59 05/08 16:03 1/2 Ns W/Kcl 20 Meq IV 1,000 mls .[id number] DONALD Administration Neomycin/Polymyxin/Bacitracin 0 gm 05/01/19 13:23 05/02/19 09:16 Triple Antibiotic TOP 1 gm BIDPRN PRN Administration INFECTION Pantoprazole Sodium 40 mg 05/01/19 09:00 05/08/19 08:39 Protonix IVP 40 mg DAILY DONALD Administration Quetiapine Fumarate 25 mg 05/05/19 21:00 05/07/19 20:00 Seroquel PO 25 mg HS DONALD Administration Sertraline HCl 100 mg 05/05/19 09:00 05/08/19 08:39 Zoloft PO 100 mg DAILY DONALD Administration Sodium Chloride 10 ml 04/30/19 18:32 05/03/19 08:41 Flush - Normal Saline IVF 10 ml PRN PRN Administration Saline Flush Sodium Chloride 10 ml 04/30/19 18:42 05/01/19 08:01 Normal Saline Pf FS 10 ml PRN PRN Administration RECONSTITUTION Zonisamide 100 mg 05/04/19 21:00 05/08/19 08:39 Zonisamide PO 100 mg BID DONALD Administration - Exam Neck: negative: supple, symmetric, no JVD, no thyromegaly, no lymphadenopathy, no carotid bruit, JVD Heart: negative: RRR, no murmur, no gallops, no rubs, normal peripheral pulses, irregular, diminshed peripheral pulses, murmur present, II/IV, III/IV Respiratory: negative: CTAB, no wheezes, no rales, no ronchi, normal chest expansion, no tachypnea, normal percussion, rales, rhonchi, tachypneic, wheezes Gastrointestinal: negative: soft, non-tender, non-distended, normal bowel sounds , no palpable masses, no hepatomegaly, no splenomegaly, no bruit, no guarding, no rigidity, tender to palpation, distended, diminished bowl sounds, voluntary guarding Hosp A/P (1) Acute metabolic encephalopathy Code(s): G93.41 - METABOLIC ENCEPHALOPATHY Status: Acute (2) Depressed Code(s): F32.9 - MAJOR DEPRESSIVE DISORDER, SINGLE EPISODE, UNSPECIFIED Status : Acute (3) Small bowel obstruction Code(s): K56.609 - UNSP INTESTNL OBST, UNSP TO PARTIAL VERSUS COMPLETE OBST Status: Acute (4) Delirium Code(s): R41.0 - DISORIENTATION, UNSPECIFIED Status: Acute - Plan pt is on many antipsy meds and per family has not been taking it since . will restart his oral meds and ask nurse to clamp ng if ok with surgery. I think this is delirium. He has no hx of drinking. will rescan his head per family request due to his fall yesterday, however i think his current symptoms are due to delirium. will also disconitnue ativan which worsens mental status and put him on haldol as needed. Seroquel is also a another option for delirium but it is po. i will continue his klonopin which he takes at night. 05/05 pt post op very agitated in bed. will start his home meds. 05/06 pt was very agitated and was intubated. will monitor. He is on tube feeds. his home meds have been restarted. 05/07 pt intubated, management per pulmonary. His feeds have been improved and with minimal residual. will check labs in am 05/08 pt extubated doing well so far. will monitor. he is on tube feeds.
--- NOTE | 2019-05-08 17:04 | PRG ---
DATE OF SERVICE: 05/08/2019 SUBJECTIVE: Mr. Stapleton remains in the Intensive Care Unit. Over the weekend, he was intubated due to respiratory difficulties. This morning, he has been extubated again. He actually seems to be substantially calmer than he was before and is currently not agitated. His family is at bedside and he is not in response to questions. He is postoperative day #6 from a laparoscopic-assisted lysis of adhesions secondary to colon resection 4 or 5 years ago. Although, he is responding to some questions, he is still not verbal in any fashion, and still has substantial auditory respiration. OBJECTIVE: VITAL SIGNS: He remains afebrile. Heart rate is in the 80s and regular, blood pressure is 145/67. His urine output per Pina catheter was 1800 mL yesterday. He has had no bowel movements. LUNGS: Clear to auscultation. He is mildly tachypneic, but does not appear to be in any distress. ABDOMEN: Soft. Incisions are all healed nicely. He has no palpable tenderness. He does have audible bowel sounds. EXTREMITIES: Unremarkable. LABORATORY DATA: His CBC shows that his white blood cell count is 10.8, hemoglobin is 10.5, platelet count is 130. His metabolic panel shows that his electrolytes are essentially normal as are his calcium, magnesium, and phosphorus. ASSESSMENT: He remains stable from a surgical standpoint. He has not had any postoperative abdominal problems. He has substantial dementia/delirium, which had developed prior to his surgery and exacerbated after his surgery. He had developed respiratory insufficiency, which required intubation. Hopefully as his mental status clears, he will be able to participate more in his care. He is currently being fed tube feeds at 20 mL/h, which he is tolerating. He has not yet had a bowel movement. I will advance his feeds to 30 mL/h and we will follow residuals. He is clearly not in any position to begin taking oral intake yet. Job ID: [id number]
[2019-05-08] MEDS: Enoxaparin Sodium 40 MG/0.4 ML SYRINGE SC SCH (19:54)
[2019-05-08] MEDS: hydrALAZINE 20 MG/ML VIAL SLOW IVP PRN (21:14)
[2019-05-08 22:05] LABS: Actual Bicarbonate (HCO3a) 19.2 mEq/L (22-28); Base Excess (BEa) -1.9 mEq/L (-2.0 to +3.0); Calcium, Ionized 1.16 mmol/L (1.12-1.30); Carboxyhemoglobin (COHb) 1.7 gm% (0.0-3.0); Hemoglobin (Hb) 13.5 g/dL (14.0-18.0); Potassium - ABG Lab 4.06 mmol/L (3.70-5.30); pH, Arterial 7.52 (7.35-7.45)
[2019-05-08 22:35] LABS: CO2 Tension 24.1 mmHg (35.0-45.0)
[2019-05-08] MEDS: Lorazepam 2 MG/ML VIAL SLOW IVP PRN (22:35)
[2019-05-08 22:36] LABS: ALV-art Gradient 119.515 (0-20); Puncture Site RRA
[2019-05-08] MEDS: Labetalol HCl 100 MG/20 ML VIAL SLOW IVP PRN (23:22)
[2019-05-08] MEDS: Haloperidol Lactate 5 MG/ML VIAL SLOW IVP PRN (23:26)
[2019-05-09] MEDS: 1/2 NS w/KCL 20 mEq 1,000 ML IV SCH ×3 (03:06→19:48)
[2019-05-09] MEDS: Haloperidol Lactate 5 MG/ML VIAL IM SCH ×6 (03:06→22:58)
[2019-05-09 05:14] LABS: Hemoglobin 11.5 g/dL (14.0-18.0)
--- NOTE | 2019-05-09 07:21 | PDOC.GSPN ---
Surgery Progress Note: Subj - Subjective Patient reports: no new complaints Narrative: Pt was agitated last night, w/ a brief 100.5 febrile episode at 4am, which resolved by 7am. Pt remained disoriented and bed-bound, requiring DONALD haloperidol and wrist restraints. Pt had ~3L input, including IVF & tube feed, while his Pina UO was 5.3L over the pat 24hr. Surgery Progress Note: Obj - Vital signs Vital signs: Vital Signs - Most Recent Temp Pulse Resp BP Pulse Ox 98.7 F 70 29 H 148/87 H 98 05/09/19 07:00 05/09/19 06:43 05/09/19 06:43 05/08/19 14:26 05/09/19 06:45 - Physical Exam General: other (agitated) Cardiovascular: regular rate and rhythm Respiratory: clear to auscultation Abdomen: non tender, nondistended, decreased bowel sounds Wound: dressing clean,dry,intact, healing well Surgery Progress Note: Results - Labs Result Diagrams: 05/09/19 03:50 05/08/19 04:08 Lab results: Laboratory Results - last 24 hr Surgery Progress Note: A/P - Problem (1) Small bowel obstruction Current Visit: Yes Code(s): K56.609 - UNSP INTESTNL OBST, UNSP TO PARTIAL VERSUS COMPLETE OBST Status: Acute Assessment and Plan: Alycia Stapleton is an 83yo CM w/ sig. PMH of HTN and CKD who originally presented to the ED on 04/30 for N/V and abdominal distention and was dx w/ SBO. Today is POD7 from laparoscopic assisted lysis of adhesion and pt is relatively stable. Pt only had H&H ordered for today, which showed Hgb improvement from 10.5 to 11.5 today. Pt has persistently high BP of 167/76, maintain current HTN med regimen. Pt has improved tachypnea of 29 today w/ O2 98% on 25L/min high flow NC , FU w/ pulmonology. Pt remained disoriented and agitated, maintain pt on DONALD & PRN haloperidol w/ his home psych med. Maintain pt on current 30mL/hr tube feed.
[2019-05-09] MEDS: Pantoprazole 40 MG VIAL IVP SCH (08:10)
[2019-05-09] MEDS: Zonisamide 100 MG CAP PO SCH ×2 (08:10→19:40)
--- NOTE | 2019-05-09 12:44 | PRG ---
DATE OF SERVICE: 05/09/2019 SERVICE: Pulmonary Medicine. INTERVAL HISTORY: The patient is doing okay from mentation standpoint today. Yesterday, he was for a brief period of time. Otherwise, there has been no interval change to his condition. He is able to answer in one and two word sentences. He appears to be comfortable. He denies having any shortness of breath or chest discomfort. PHYSICAL EXAMINATION: VITAL SIGNS: Afebrile with a T-max of 100.5, pulse 87, blood pressure 149/79, respirations 29, saturation 95%, currently on high-flow nasal cannula at 38% FiO2, and a flow of 25 L/minute. GENERAL: The patient is awake and alert, in no apparent distress. LUNGS: Decent air entry. I do not have a prolonged expiratory phase or wheezing present. HEART: Normal rate. Regular. ABDOMEN: Soft, nontender, and nondistended. Bowel sounds are positive. MUSCULOSKELETAL: No cyanosis or clubbing. There is no pitting in the bilateral lower extremities. NEUROLOGIC: Grossly nonfocal. LABORATORY DATA: Hemoglobin 11.5. Urine culture is negative at 36 hours. ASSESSMENT: 1. Acute hypoxic respiratory failure. 2. Acute bronchitis, resolved. 3. Delirium, agitated with likely underlying dementia. 4. Small bowel obstruction, status post lysis of adhesion. DISCUSSION AND PLAN: The patient has been extubated comfortably. We will continue our mobilization efforts through time. I will see if I can wean our Haldol to q.6 hours and also wean the Precedex. 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 Once he can be handled on the floor, he should be considered for transition to the floor. Pulmonary/Critical Care will continue to follow along for now. Job ID: [id number]
[2019-05-09] MEDS: Enoxaparin Sodium 40 MG/0.4 ML SYRINGE SC SCH (19:40)
[2019-05-09] MEDS: Haloperidol Lactate 5 MG/ML VIAL SLOW IVP PRN (20:28)
[2019-05-10] MEDS: 1/2 NS w/KCL 20 mEq 1,000 ML IV SCH (00:06)
[2019-05-10] MEDS: Labetalol HCl 100 MG/20 ML VIAL SLOW IVP PRN (03:29)
[2019-05-10] MEDS: hydrALAZINE 20 MG/ML VIAL SLOW IVP PRN (05:14)
[2019-05-10] MEDS: Haloperidol Lactate 5 MG/ML VIAL IM SCH (05:15)
[2019-05-10] MEDS ORDERED: Labetalol HCl 100 MG/20 ML VIAL SLOW IVP PRN (05:53)
[2019-05-10] MEDS ORDERED: Fluconazole 100 MG TAB PO SCH (06:00)
[2019-05-10 06:03] LABS: Anion Gap 11 mmol/L (10-20); BUN (Urea Nitrogen) 17 mg/dL (8.4-25.7); Calc. Creatinine Clearance 79 mL/min (70-130); Calcium 8.3 mg/dL (7.8-10.44); Carbon Dioxide 23 mmol/L (23-31); Chloride 106 mmol/L (98-107); Estimated GFR-MDRD Greater than 90; Glucose 129 mg/dL (83-110); Magnesium 1.9 mg/dL (1.6-2.6); Potassium 3.8 mmol/L (3.5-5.1); Sodium 136 mmol/L (136-145)
--- NOTE | 2019-05-10 06:05 | PRG ---
DATE OF SERVICE: 05/10/2019 SERVICE: Pulmonary Medicine. INTERVAL HISTORY: The patient is doing really quite good from mentation standpoint. Today, he is awake and alert. He is cooperative. He is following some simple commands. Denies any current fevers, chills, nausea, or vomiting. There were no significant overnight events. We were able to get off the Precedex. This just got turned off, so we will see how it goes. PHYSICAL EXAMINATION: VITAL SIGNS: Afebrile currently. He has a T-max of 99.7. Pulse 80, blood pressure 190/83, respirations 26, saturation 98%, currently on 29% FiO2 delivered via high-flow nasal cannula. GENERAL: The patient is awake and alert, in no apparent distress. LUNGS: Decent air entry. Rhonchi are present. There is no prolonged expiratory phase or wheezing. HEART: Normal rate, regular. ABDOMEN: Soft, nontender, nondistended. Bowel sounds are positive. MUSCULOSKELETAL: No cyanosis or clubbing. No pitting in the bilateral lower extremities. NEUROLOGIC: Grossly nonfocal. LABORATORY DATA: Laboratories are currently pending. I will need to follow up on these shortly. ASSESSMENT: 1. Acute hypoxic respiratory failure, improving. 2. Acute bronchitis, resolved. 3. Delirium, agitated with likely underlying dementia. 4. Small bowel obstruction, status post lysis of adhesions. 5. Thrush. DISCUSSION AND PLAN: The patient is actually doing quite well from mentation standpoint. If he can stay off the Precedex, we will need to take the opportunity to get him out of the ICU, off telemetry, and away from any of the distractions that are keeping him confused. We will continue all of his psychiatric medications, as well as the Seroquel at night. We will back off further on the Haldol to q.12 hours and decrease as he tolerates. Pulmonary and Critical Care will continue to follow for the time being. Of note, he has a little thrush on his tongue. As such, antifungal medications will be initiated. Job ID: [id number] MTDD
[2019-05-10] MEDS: Zonisamide 100 MG CAP PO SCH ×2 (07:41→20:54)
[2019-05-10] MEDS: Pantoprazole 40 MG VIAL IVP SCH (07:42)
--- NOTE | 2019-05-10 07:51 | PDOC.GSPN ---
Surgery Progress Note: Subj - Subjective Narrative: Mr. Stapleton is an 83 y/o male POD#8 from laparoscopic assisted lysis of adhesions for SBO secondary to colon resection around 5 years ago. His mental status is improving and was taken off the dexmetatomidine this AM. He is more awake, does not seem agitated and is able to follow commands. He is verbal, but he does not have his dentures, which makes his speech difficult to understand. He had HTN last night reaching a peak BP of 193/107, but his pressure has responded to hydralazine and labetalol. He continues to be on maintenance IVF of 1/2 NS with 20 mEq of KCl and his tube feedings continue at 55 ml/hr. Urine output via flores catheter was 2265 ml last night. Duoneb treatments also continue as per pulmonology/critical care. He was also given fluconazole this AM for oral thrush. Surgery Progress Note: Obj - Vital signs Vital signs: Vital Signs - Most Recent Temp Pulse Resp BP Pulse Ox 99.7 F H 78 27 H 127/67 97 05/10/19 04:00 05/10/19 06:35 05/10/19 06:35 05/09/19 15:02 05/10/19 07:00 - Physical Exam General: no distress ENT: other (NG tube in place) Cardiovascular: regular rate and rhythm, no murmur, other (No peripheral edema. Left subclavian central line in place.) Respiratory: coarse breath sounds (rhonchi present bilaterally) Abdomen: soft, non tender, positive bowel sounds Psychiatric: other (speech incomprehensible) Wound: healing well (no ertyhema around incisions.) Surgery Progress Note: Results - Labs Result Diagrams: 05/09/19 03:50 05/10/19 05:24 Lab results: Laboratory Results - last 24 hr 05/10/19 05/10/19 05:24 05:24 Sodium 136 Potassium 3.8 Chloride 106 Carbon Dioxide 23 Anion Gap 11 BUN 17 Creatinine 0.81 Estimated GFR (MDRD) Greater than 90 Glucose 129 H Calcium 8.3 Phosphorus 3.0 Magnesium 1.9 Surgery Progress Note: A/P - Plan Plan: Mr. Stapleton is an 83 y/o male POD#8 from laparoscopic assisted lysis of adhesions and has had trouble with hospital associated delirium that is slowly improving. Nursing reports that mental status, agitation and speech is improving. He was still given quetiapine and sertraline and we will continue to monitor improvement of mental status now that he is off the dexmetatomidine and less sedated. His episode of HTN last night seemed to respond well to hydrlazine and labetalol and plan is to continue those medications prn. He is tolerating tube feedings well and nursing reports minimal residuals. Plan is to continue tube feedings and maintenance IVF for now. His electrolytes, including magnesium, calcium and phosphorus were all wnl this morning. Urine output was adequate as well. Will continue to follow pulmonology and critical care's recommendations to help move the patient out of the ICU whenever possible to improve his mental function.
--- NOTE | 2019-05-10 08:05 | PDOC.HOSPP ---
- Subjective Encounter Date: 05/09/19 Encounter Time: 10:15 Subjective: pt up in chair awake and calm and oriented x1 - Objective Vital Signs & Weight: Vital Signs (12 hours) Temp Pulse Resp Pulse Ox 05/10/19 07:53 98.8 F 05/10/19 07:00 97 05/10/19 06:36 98 05/10/19 06:35 78 27 H 97 05/10/19 04:00 99.7 F H 05/10/19 00:14 82 28 H 95 05/10/19 00:00 98.2 F Weight Admit Weight 182 lb 8 oz Weight 176 lb 5.917 oz Most Recent Monitor Data Heart Rate from ECG 81 NIBP 151/96 NIBP BP-Mean 114 Respiration from ECG 29 SpO2 97 I&O: 05/09/19 05/10/19 05/11/19 06:59 06:59 06:59 Intake Total 3164 4038.2 90 Output Total 5300 3915 200 Balance -2136 123.2 -110 Result Diagrams: 05/09/19 03:50 05/10/19 05:24 Hospitalist ROS - Review of Systems Other: unable to obtain - Medication Medications: Active Medications Generic Name Dose Route Start Last Admin Trade Name Freq PRN Reason Stop Dose Admin Albuterol/Ipratropium 3 ml 05/03/19 13:00 05/10/19 06:35 Duoneb NEB 3 ml [id number] DONALD Administration Enoxaparin Sodium 40 mg 04/30/19 21:00 05/09/19 19:40 Lovenox SC 40 mg 2100 DONALD Administration Haloperidol Lactate 5 mg 05/02/19 13:39 05/08/19 23:26 Haldol SLOW IVP 5 mg Q6H PRN Administration Agitation Hydralazine HCl 10 mg 04/30/19 18:32 05/10/19 05:14 Apresoline SLOW IVP 10 mg Q4H PRN Administration SBP > 170 or DBP > 100 Potassium Chloride/Sodium Chloride 1,000 mls @ 50 mls/hr 05/09/19 16:43 05/10 00:06 1/2 Ns W/Kcl 20 Meq IV 1,000 mls .Q20H DONALD Administration Labetalol HCl 20 mg 05/10/19 05:53 05/10/19 06:10 Normodyne SLOW IVP 20 mg Q4H PRN Administration SBP Greater Than 180 Lorazepam 1 mg 05/08/19 22:25 05/08/19 22:35 Ativan SLOW IVP 1 mg Q2H PRN Administration Anxiety Pantoprazole Sodium 40 mg 05/01/19 09:00 05/10/19 07:42 Protonix IVP 40 mg DAILY DONALD Administration Quetiapine Fumarate 25 mg 05/05/19 21:00 05/09/19 19:40 Seroquel PO 25 mg HS DONALD Administration Sertraline HCl 100 mg 05/05/19 09:00 05/10/19 07:41 Zoloft PO 100 mg DAILY DONALD Administration Sodium Chloride 10 ml 04/30/19 18:32 05/03/19 08:41 Flush - Normal Saline IVF 10 ml PRN PRN Administration Saline Flush Sodium Chloride 10 ml 04/30/19 18:42 05/01/19 08:01 Normal Saline Pf FS 10 ml PRN PRN Administration RECONSTITUTION Zonisamide 100 mg 05/04/19 21:00 05/10/19 07:41 Zonisamide PO 100 mg BID DONALD Administration - Exam Neck: negative: supple, symmetric, no JVD, no thyromegaly, no lymphadenopathy, no carotid bruit, JVD Heart: negative: RRR, no murmur, no gallops, no rubs, normal peripheral pulses, irregular, diminshed peripheral pulses, murmur present, II/IV, III/IV Respiratory: negative: CTAB, no wheezes, no rales, no ronchi, normal chest expansion, no tachypnea, normal percussion, rales, rhonchi, tachypneic, wheezes Hosp A/P (1) Acute metabolic encephalopathy Code(s): G93.41 - METABOLIC ENCEPHALOPATHY Status: Acute (2) Depressed Code(s): F32.9 - MAJOR DEPRESSIVE DISORDER, SINGLE EPISODE, UNSPECIFIED Status : Acute (3) Small bowel obstruction Code(s): K56.609 - UNSP INTESTNL OBST, UNSP TO PARTIAL VERSUS COMPLETE OBST Status: Acute (4) Delirium Code(s): R41.0 - DISORIENTATION, UNSPECIFIED Status: Acute - Plan pt is on many antipsy meds and per family has not been taking it since . will restart his oral meds and ask nurse to clamp ng if ok with surgery. I think this is delirium. He has no hx of drinking. will rescan his head per family request due to his fall yesterday, however i think his current symptoms are due to delirium. will also disconitnue ativan which worsens mental status and put him on haldol as needed. Seroquel is also a another option for delirium but it is po. i will continue his klonopin which he takes at night. 05/05 pt post op very agitated in bed. will start his home meds. 05/06 pt was very agitated and was intubated. will monitor. He is on tube feeds. his home meds have been restarted. 05/07 pt intubated, management per pulmonary. His feeds have been improved and with minimal residual. will check labs in am 05/08 pt extubated doing well so far. will monitor. he is on tube feeds. 05/09 agree with backing off haldol. continue his home meds.
--- NOTE | 2019-05-10 08:48 | RAD ---
CHEST 1 VIEW: INDICATION: Hypoxia. COMPARISON: Prior exam dated 05/03/2019. FINDINGS: There is a worsening central edema pattern. Cardiomegaly persists. Left subclavian central venous c atheter and gastric catheter are unchanged. Right costophrenic angle is excluded. No pneumothorax i s evident. IMPRESSION: Worsening central edema pattern. POS: BH
--- NOTE | 2019-05-10 13:30 | PDOC.HOSPP ---
- Subjective Encounter Date: 05/10/19 Encounter Time: 10:45 Subjective: pt up in bed oriented x2 - Objective Vital Signs & Weight: Vital Signs (12 hours) Temp Pulse Pulse Pulse Resp BP BP 05/10/19 12:28 85 26 H 05/10/19 10:05 65 110 H 130/63 177/79 H 05/10/19 07:53 98.8 F 05/10/19 07:00 05/10/19 06:36 05/10/19 06:35 78 27 H 05/10/19 04:00 99.7 F H Pulse Ox Pulse Ox 05/10/19 12:28 87 L 05/10/19 10:05 97 05/10/19 07:53 05/10/19 07:00 97 05/10/19 06:36 98 05/10/19 06:35 97 05/10/19 04:00 Weight Admit Weight 182 lb 8 oz Weight 176 lb 5.917 oz Most Recent Monitor Data Heart Rate from ECG 79 NIBP 162/59 NIBP BP-Mean 93 Respiration from ECG 28 SpO2 91 I&O: 05/09/19 05/10/19 05/11/19 06:59 06:59 06:59 Intake Total 3164 4038.2 540 Output Total 5300 3915 700 Balance -2136 123.2 -160 Result Diagrams: 05/09/19 03:50 05/10/19 05:24 Hospitalist ROS - Review of Systems Cardiovascular: denies: chest pain, palpitations, orthopnea, paroxysmal noc. dyspnea, edema, light headedness, other Gastrointestinal: denies: nausea, vomiting, abdominal pain, diarrhea, constipation, melena, hematochezia, other Genitourinary: denies: dysuria, frequency, incontinence, hematuria, retention, other - Medication Medications: Active Medications Generic Name Dose Route Start Last Admin Trade Name Freq PRN Reason Stop Dose Admin Albuterol/Ipratropium 3 ml 05/03/19 13:00 05/10/19 12:28 Duoneb NEB 3 ml [id number] DONALD Administration Enoxaparin Sodium 40 mg 04/30/19 21:00 05/09/19 19:40 Lovenox SC 40 mg 2100 DONALD Administration Haloperidol Lactate 5 mg 05/02/19 13:39 05/08/19 23:26 Haldol SLOW IVP 5 mg Q6H PRN Administration Agitation Hydralazine HCl 10 mg 04/30/19 18:32 05/10/19 05:14 Apresoline SLOW IVP 10 mg Q4H PRN Administration SBP > 170 or DBP > 100 Potassium Chloride/Sodium Chloride 1,000 mls @ 50 mls/hr 05/09/19 16:43 05/10 00:06 1/2 Ns W/Kcl 20 Meq IV 1,000 mls .Q20H DONALD Administration Labetalol HCl 20 mg 05/10/19 05:53 05/10/19 06:10 Normodyne SLOW IVP 20 mg Q4H PRN Administration SBP Greater Than 180 Lorazepam 1 mg 05/08/19 22:25 05/08/19 22:35 Ativan SLOW IVP 1 mg Q2H PRN Administration Anxiety Pantoprazole Sodium 40 mg 05/01/19 09:00 05/10/19 07:42 Protonix IVP 40 mg DAILY DONALD Administration Quetiapine Fumarate 25 mg 05/05/19 21:00 05/09/19 19:40 Seroquel PO 25 mg HS DONALD Administration Sertraline HCl 100 mg 05/05/19 09:00 05/10/19 07:41 Zoloft PO 100 mg DAILY DONALD Administration Sodium Chloride 10 ml 04/30/19 18:32 05/03/19 08:41 Flush - Normal Saline IVF 10 ml PRN PRN Administration Saline Flush Sodium Chloride 10 ml 04/30/19 18:42 05/01/19 08:01 Normal Saline Pf FS 10 ml PRN PRN Administration RECONSTITUTION Zonisamide 100 mg 05/04/19 21:00 05/10/19 07:41 Zonisamide PO 100 mg BID DONALD Administration - Exam Heart: negative: RRR, no murmur, no gallops, no rubs, normal peripheral pulses, irregular, diminshed peripheral pulses, murmur present, II/IV, III/IV Respiratory: negative: CTAB, no wheezes, no rales, no ronchi, normal chest expansion, no tachypnea, normal percussion, rales, rhonchi, tachypneic, wheezes Gastrointestinal: negative: soft, non-tender, non-distended, normal bowel sounds , no palpable masses, no hepatomegaly, no splenomegaly, no bruit, no guarding, no rigidity, tender to palpation, distended, diminished bowl sounds, voluntary guarding Hosp A/P (1) Acute metabolic encephalopathy Code(s): G93.41 - METABOLIC ENCEPHALOPATHY Status: Acute (2) Depressed Code(s): F32.9 - MAJOR DEPRESSIVE DISORDER, SINGLE EPISODE, UNSPECIFIED Status : Acute (3) Small bowel obstruction Code(s): K56.609 - UNSP INTESTNL OBST, UNSP TO PARTIAL VERSUS COMPLETE OBST Status: Acute (4) Delirium Code(s): R41.0 - DISORIENTATION, UNSPECIFIED Status: Acute - Plan pt is on many antipsy meds and per family has not been taking it since . will restart his oral meds and ask nurse to clamp ng if ok with surgery. I think this is delirium. He has no hx of drinking. will rescan his head per family request due to his fall yesterday, however i think his current symptoms are due to delirium. will also disconitnue ativan which worsens mental status and put him on haldol as needed. Seroquel is also a another option for delirium but it is po. i will continue his klonopin which he takes at night. 05/05 pt post op very agitated in bed. will start his home meds. 05/06 pt was very agitated and was intubated. will monitor. He is on tube feeds. his home meds have been restarted. 05/07 pt intubated, management per pulmonary. His feeds have been improved and with minimal residual. will check labs in am 05/08 pt extubated doing well so far. will monitor. he is on tube feeds. 05/09 agree with backing off haldol. continue his home meds. 05/10 pt doing well, will monitor. His mentation is improving.
[2019-05-10] MEDS: Haloperidol Lactate 5 MG/ML VIAL SLOW IVP PRN (15:54)
[2019-05-10] MEDS: Enoxaparin Sodium 40 MG/0.4 ML SYRINGE SC SCH (20:53)
--- NOTE | 2019-05-10 20:58 | PRG ---
DATE OF SERVICE: 05/10/2019 Please see progress note from today's date earlier this morning. In summary, Mr. Stapleton is postoperative day #8 from abdominal surgery for abdominal adhesions. His problems during this hospitalization subsequently have not been related to his abdomen or to his surgery, but rather to his mental status and his pulmonary status. His delirium seems to be improving and his sedation has accordingly been diminished and mostly discontinued per Dr. Walton. The patient was tolerating full volume tube feeds this morning and reportedly doing well with ice chips and sips. As he was going to be evaluated by Speech Therapy today, I felt it appropriate to remove his nasogastric tube to optimize his chances for appropriate swallowing. It was understood that should he fail attempts at swallowing appropriately that he would still require enteral nutrition, but this would be better provided with a Dobbhoff tube, then the more rigid and uncomfortable nasogastric tube. I am told that Speech Therapy saw him today, but did not clear him to begin swallowing at this time. They plan to re-evaluate him tomorrow morning (on ). If he is felt to be acceptable risk to begin swallowing than it would certainly be appropriate to leave the tube out and begin advancing his diet as he tolerates. If he is not felt to be appropriate risk for swallowing, then a Dobbhoff tube should be placed and tube feeds should be initiated once again because otherwise he is at risk for progressive nutritional deficiencies. He has had several bowel movements today. He is voiding spontaneously into a diaper. He is much more lucid and actually speaking today (although it is difficult to understand him without his dentures). Finally, he has not really had any surgical problems since shortly after his surgery. The vast majority of his care has been per Pulmonary Medicine and the [facility]. From a surgical standpoint, we will continue to follow loosely and will be available if there are any surgical problems or questions, but his diet can and should be advanced as his mental status and swallowing ability allow. Job ID: [id number]
[2019-05-11] MEDS: 1/2 NS w/KCL 20 mEq 1,000 ML IV SCH ×2 (00:59→23:14)
[2019-05-11] MEDS: Lorazepam 2 MG/ML VIAL SLOW IVP PRN (03:50)
[2019-05-11 04:11] LABS: #Eosinphils 0.1 thou/uL (0.0-0.7); #Lymphocytes 1.4 thou/uL (1.20-3.40); #Monocytes 1.3 thou/uL (0.11-0.59); %Basophils 0.3 % (0.0-1.0); %Eosinophils 0.8 % (0.0-10.0); %Monocytes 9.3 % (0.0-10.0); %Neutrophils 79.6 % (42.0-75.0); Hemoglobin 11.4 g/dL (14.0-18.0); Mean Corpuscular HGB CONC 32.9 g/dL (32.0-36.0); Mean Corpuscular Hemoglobin 29.9 pg (27.0-31.0); Mean Corpuscular Volume 90.9 fL (78.0-98.0); Mean Platelet Volume 9.3 fL (7.4-10.4); Platelet Count 164 thou/uL (130-400); RBC Distribution Width 12.9 % (11.5-14.5); Red Blood Cell (RBC) Count 3.82 mill/uL (4.70-6.10); White Blood Cell (WBC) Count 13.9 thou/uL (4.8-10.8)
[2019-05-11 04:28] LABS: Anion Gap 10 mmol/L (10-20); BUN (Urea Nitrogen) 18 mg/dL (8.4-25.7); Calc. Creatinine Clearance 75 mL/min (70-130); Calcium 8.6 mg/dL (7.8-10.44); Carbon Dioxide 24 mmol/L (23-31); Chloride 106 mmol/L (98-107); Estimated GFR-MDRD 89; Glucose 99 mg/dL (83-110); Potassium 3.7 mmol/L (3.5-5.1); Sodium 136 mmol/L (136-145)
[2019-05-11] MEDS: Fluconazole 100 MG TAB PO SCH (09:13)
[2019-05-11] MEDS: Zonisamide 100 MG CAP PO SCH ×2 (09:14→21:42)
[2019-05-11] MEDS: Pantoprazole 40 MG VIAL IVP SCH (09:21)
--- NOTE | 2019-05-11 13:06 | PDOC.HOSPP ---
- Subjective Encounter Date: 05/11/19 Encounter Time: 10:00 Subjective: pt up in bed oriented to self. - Objective Vital Signs & Weight: Vital Signs (12 hours) Temp Pulse Resp Pulse Ox 05/11/19 10:40 99.5 F 05/11/19 07:32 95 05/11/19 07:31 84 22 H 94 L 05/11/19 07:08 97.5 F L 05/11/19 06:18 87 20 05/11/19 03:49 82 20 05/11/19 03:38 98.8 F Weight Admit Weight 182 lb 8 oz Weight 172 lb Most Recent Monitor Data Heart Rate from ECG 79 NIBP 153/79 NIBP BP-Mean 103 Respiration from ECG 28 SpO2 99 I&O: 05/10/19 05/11/19 05/12/19 06:59 06:59 06:59 Intake Total 4038.2 2028 Output Total 3915 1752 Balance 123.2 276 Result Diagrams: 05/11/19 03:50 05/11/19 03:50 Hospitalist ROS - Review of Systems Respiratory: denies: cough, dry, shortness of breath, hemoptysis, SOB with excertion, pleuritic pain, sputum, wheezing, other Cardiovascular: denies: chest pain, palpitations, orthopnea, paroxysmal noc. dyspnea, edema, light headedness, other Gastrointestinal: denies: nausea, vomiting, abdominal pain, diarrhea, constipation, melena, hematochezia, other - Medication Medications: Active Medications Generic Name Dose Route Start Last Admin Trade Name Freq PRN Reason Stop Dose Admin Albuterol/Ipratropium 3 ml 05/03/19 13:00 05/11/19 07:31 Duoneb NEB 3 ml [id number] DONALD Administration Enoxaparin Sodium 40 mg 04/30/19 21:00 05/10/19 20:53 Lovenox SC 40 mg 2100 DONALD Administration Fluconazole 100 mg 05/11/19 09:00 05/11/19 09:13 Diflucan PO 05/17/19 09:01 Not Given DAILY DONALD Haloperidol Lactate 5 mg 05/02/19 13:39 05/10/19 15:54 Haldol SLOW IVP 5 mg Q6H PRN Administration Agitation Hydralazine HCl 10 mg 04/30/19 18:32 05/10/19 05:14 Apresoline SLOW IVP 10 mg Q4H PRN Administration SBP > 170 or DBP > 100 Potassium Chloride/Sodium Chloride 1,000 mls @ 50 mls/hr 05/09/19 16:43 05/11 00:59 1/2 Ns W/Kcl 20 Meq IV 1,000 mls .Q20H DONALD Administration Labetalol HCl 20 mg 05/10/19 05:53 05/10/19 06:10 Normodyne SLOW IVP 20 mg Q4H PRN Administration SBP Greater Than 180 Lorazepam 1 mg 05/08/19 22:25 05/11/19 03:50 Ativan SLOW IVP 1 mg Q2H PRN Administration Anxiety Pantoprazole Sodium 40 mg 05/01/19 09:00 05/11/19 09:21 Protonix IVP 40 mg DAILY DONALD Administration Quetiapine Fumarate 25 mg 05/05/19 21:00 05/10/19 20:54 Seroquel PO Not Given HS DONALD Sertraline HCl 100 mg 05/05/19 09:00 05/11/19 09:14 Zoloft PO Not Given DAILY DONALD Sodium Chloride 10 ml 04/30/19 18:32 05/03/19 08:41 Flush - Normal Saline IVF 10 ml PRN PRN Administration Saline Flush Sodium Chloride 10 ml 04/30/19 18:42 05/01/19 08:01 Normal Saline Pf FS 10 ml PRN PRN Administration RECONSTITUTION Zonisamide 100 mg 05/04/19 21:00 05/11/19 09:14 Zonisamide PO Not Given BID DONALD - Exam Neck: negative: supple, symmetric, no JVD, no thyromegaly, no lymphadenopathy, no carotid bruit, JVD Heart: negative: RRR, no murmur, no gallops, no rubs, normal peripheral pulses, irregular, diminshed peripheral pulses, murmur present, II/IV, III/IV Respiratory: negative: CTAB, no wheezes, no rales, no ronchi, normal chest expansion, no tachypnea, normal percussion, rales, rhonchi, tachypneic, wheezes Hosp A/P (1) Acute metabolic encephalopathy Code(s): G93.41 - METABOLIC ENCEPHALOPATHY Status: Acute (2) Depressed Code(s): F32.9 - MAJOR DEPRESSIVE DISORDER, SINGLE EPISODE, UNSPECIFIED Status : Acute (3) Small bowel obstruction Code(s): K56.609 - UNSP INTESTNL OBST, UNSP TO PARTIAL VERSUS COMPLETE OBST Status: Acute (4) Delirium Code(s): R41.0 - DISORIENTATION, UNSPECIFIED Status: Acute - Plan pt is on many antipsy meds and per family has not been taking it since . will restart his oral meds and ask nurse to clamp ng if ok with surgery. I think this is delirium. He has no hx of drinking. will rescan his head per family request due to his fall yesterday, however i think his current symptoms are due to delirium. will also discontinue ativan which worsens mental status and put him on haldol as needed. Seroquel is also a another option for delirium but it is po. i will continue his klonopin which he takes at night. 05/05 pt post op very agitated in bed. will start his home meds. 05/06 pt was very agitated and was intubated. will monitor. He is on tube feeds. his home meds have been restarted. 05/07 pt intubated, management per pulmonary. His feeds have been improved and with minimal residual. will check labs in am 05/08 pt extubated doing well so far. will monitor. he is on tube feeds. 05/09 agree with backing off haldol. continue his home meds. 05/10 pt doing well, will monitor. His mentation is improving. 05/11 pt failed his swallow eval will need dubhob. will need snf. he is now on his home dose meds except for seroquel which is new.
--- NOTE | 2019-05-11 13:09 | RAD ---
EXAM: Supine abdomen INDICATIONS: NG tube placement COMPARISON: None. FINDINGS: Dobbhoff feeding tube has tip overlying the distal esophagus. Bowel gas pattern unremarkabl e. IMPRESSION: Tip of feeding tube overlies distal esophagus
--- NOTE | 2019-05-11 13:10 | RAD ---
EXAM: Supine abdomen INDICATIONS: Dobbhoff placement COMPARISON: Film at 12:23 PM FINDINGS: NG tube passes through the EG junction. Tip of feeding tube overlies mid gastric fundus.
--- NOTE | 2019-05-11 14:58 | PRG ---
DATE OF SERVICE: 05/11/2019 SUBJECTIVE: This is an 83-year-old man, 9 days status post laparoscopic-assisted lysis of adhesions. The patient is quite debilitated and fatigued. He is on high-flow nasal oxygen supplementation. Urinary output is adequate. OBJECTIVE: VITAL SIGNS: This morning include blood pressure 153/79, pulse 84, respiratory rate is 25, temperature is 97.5 degrees Fahrenheit, oxygen saturation is 95% on high-flow nasal cannula, oxygen supplementation 40%. HEENT: Pupils equal, round, reactive to light and accommodation. NECK: He has no jugular venous distention noted. HEART: Reveals regular rate and rhythm. LUNGS: Reveals diminished bibasilar breath sounds. Breathing otherwise regular and nonlabored. ABDOMEN: Soft, nontender, and nondistended. Incisions are intact, clean, dry. Clearly, he has no peritoneal signs on examination. NEUROLOGIC: Reveals no focal deficits present. LABORATORY FINDINGS: Today include a CBC with 13,900 white blood cells, hemoglobin and hematocrit 11.4 and 34.7 respectively, platelet count is 164,000. Metabolic profile; sodium 136, potassium 3.7, chloride is 106, bicarb is 24, BUN is 18, creatinine 0.82, glucose is 99. IMPRESSION: 1. Postop day #9, status post laparoscopic-assisted adhesiolysis. 2. Profound debility in an elderly man. 3. Acute malnutrition. 4. Resolving adynamic ileus. PLAN: 1. Continue with physical and occupational therapy. 2. We will place a Dobhoff feeding tube to facilitate enteral nutritional supplementation. 3. Above findings and plan discussed with the patient's son and his at bedside. 4. They indicated understanding information given and agreed with the plan. Job ID: [id number]
[2019-05-11] MEDS: Haloperidol Lactate 5 MG/ML VIAL SLOW IVP PRN (15:52)
--- NOTE | 2019-05-11 16:46 | PRG ---
DATE OF SERVICE: 05/11/2019 SUBJECTIVE: Alycia Stapleton according to the , is not as alert as he was yesterday, certainly in no distress. OBJECTIVE: VITAL SIGNS: He is afebrile. Heart rate is 83, respiratory rate is 22, oximetry is 100%. LUNGS: Clear. HEART: Regular rhythm. ABDOMEN: Soft. Apparently, he is protecting his airway. IMPRESSION: 1. Status post emergent intubation for an inability to handle his secretions. 2. Decompensated dementia. Apparently, he has made multiple bad decisions recently when talking to the children. 3. Status post laparotomy. 4. Inability to take his medicines at this time. A Dobbhoff tube apparently has been ordered. He is having no respiratory issues at this time. We will follow. Job ID: [id number] MTDD
[2019-05-11] MEDS: Enoxaparin Sodium 40 MG/0.4 ML SYRINGE SC SCH (21:41)
[2019-05-12] MEDS: Lorazepam 2 MG/ML VIAL SLOW IVP PRN ×2 (01:41→04:59)
[2019-05-12 04:46] LABS: #Eosinphils 0.2 thou/uL (0.0-0.7); #Lymphocytes 1.5 thou/uL (1.20-3.40); #Monocytes 1.2 thou/uL (0.11-0.59); #Neutrophils 8.5 thou/uL (1.40-6.50); %Basophils 0.2 % (0.0-1.0); %Eosinophils 1.6 % (0.0-10.0); %Lymphocytes 12.8 % (21.0-51.0); %Monocytes 10.3 % (0.0-10.0); Hemoglobin 11.2 g/dL (14.0-18.0); Mean Corpuscular HGB CONC 32.9 g/dL (32.0-36.0); Mean Corpuscular Hemoglobin 30.1 pg (27.0-31.0); Mean Corpuscular Volume 91.6 fL (78.0-98.0); Mean Platelet Volume 9.2 fL (7.4-10.4); Platelet Count 159 thou/uL (130-400); RBC Distribution Width 12.9 % (11.5-14.5); Red Blood Cell (RBC) Count 3.72 mill/uL (4.70-6.10); White Blood Cell (WBC) Count 11.3 thou/uL (4.8-10.8)
[2019-05-12 05:11] LABS: Anion Gap 10 mmol/L (10-20); BUN (Urea Nitrogen) 15 mg/dL (8.4-25.7); Calc. Creatinine Clearance 76 mL/min (70-130); Calcium 8.7 mg/dL (7.8-10.44); Carbon Dioxide 25 mmol/L (23-31); Chloride 105 mmol/L (98-107); Estimated GFR-MDRD Greater than 90; Glucose 125 mg/dL (83-110); Sodium 136 mmol/L (136-145)
[2019-05-12] MEDS: Fluconazole 100 MG TAB PO SCH (09:41)
[2019-05-12] MEDS: Zonisamide 100 MG CAP PO SCH ×2 (09:42→21:29)
[2019-05-12] MEDS: Pantoprazole 40 MG VIAL IVP SCH (09:42)
--- NOTE | 2019-05-12 11:00 | PRG ---
DATE OF SERVICE: 05/12/2019 SUBJECTIVE: The patient is confused. It is hard to get any history from him. OBJECTIVE: VITAL SIGNS: Temperature is 96.6, pulse 112, blood pressure 178/79, O2 saturations 100%. HEENT: Unremarkable. NECK: No adenopathy or JVD. CHEST: Clear anteriorly. CARDIAC: S1 and S2. Regular. ABDOMEN: Soft. EXTREMITIES: Muscle wasting present. LABORATORY DATA: White blood cell count 11.3, hematocrit 34.1, and platelet count 159. Sodium 136, potassium 4, chloride 105, CO2 of 25, BUN 15, creatinine 0.8, glucose 125. ASSESSMENT: 1. Status post endotracheal intubation for inability to handle secretions. 2. Dementia. 3. Status post laparotomy. PLAN: Care is mainly supportive at this time. He basically requires IMCU care because of his mental status issues. No acute pulmonary concerns. Job ID: [id number]
--- NOTE | 2019-05-12 14:49 | PDOC.HOSPP ---
- Subjective Encounter Date: 05/12/19 Encounter Time: 10:30 Subjective: Comfortable, - Objective Vital Signs & Weight: Vital Signs (12 hours) Temp Pulse Resp Pulse Ox 05/12/19 14:46 86 05/12/19 13:03 81 19 96 05/12/19 12:19 77 05/12/19 11:16 96.6 F L 05/12/19 10:57 87 05/12/19 09:00 85 05/12/19 08:00 100 05/12/19 07:19 96.6 F L 05/12/19 07:14 79 20 100 05/12/19 03:24 96.6 F L Weight Admit Weight 182 lb 8 oz Weight 176 lb 8 oz Most Recent Monitor Data Heart Rate from ECG 79 NIBP 174/77 NIBP BP-Mean 109 Respiration from ECG 28 SpO2 95 I&O: 05/11/19 05/12/19 05/13/19 06:59 06:59 06:59 Intake Total 8 1586 30 Output Total 1752 Balance 276 1586 30 Result Diagrams: 05/12/19 04:24 05/12/19 04:24 Hospitalist ROS - Medication Medications: Active Medications Generic Name Dose Route Start Last Admin Trade Name Freq PRN Reason Stop Dose Admin Albuterol/Ipratropium 3 ml 05/03/19 13:00 05/12/19 13:03 Duoneb NEB 3 ml [id number] DONALD Administration Enoxaparin Sodium 40 mg 04/30/19 21:00 05/11/19 21:41 Lovenox SC 40 mg 2100 DONALD Administration Fluconazole 100 mg 05/11/19 09:00 05/12/19 09:41 Diflucan PO 05/17/19 09:01 100 mg DAILY DONALD Administration Haloperidol Lactate 5 mg 05/02/19 13:39 05/11/19 15:52 Haldol SLOW IVP 5 mg Q6H PRN Administration Agitation Hydralazine HCl 10 mg 04/30/19 18:32 05/10/19 05:14 Apresoline SLOW IVP 10 mg Q4H PRN Administration SBP > 170 or DBP > 100 Potassium Chloride/Sodium Chloride 1,000 mls @ 50 mls/hr 05/09/19 16:43 05/11 23:14 1/2 Ns W/Kcl 20 Meq IV 1,000 mls .Q20H DONALD Administration Labetalol HCl 20 mg 05/10/19 05:53 05/10/19 06:10 Normodyne SLOW IVP 20 mg Q4H PRN Administration SBP Greater Than 180 Lorazepam 1 mg 05/08/19 22:25 05/12/19 04:59 Ativan SLOW IVP 1 mg Q2H PRN Administration Anxiety Pantoprazole Sodium 40 mg 05/01/19 09:00 05/12/19 09:42 Protonix IVP 40 mg DAILY DONALD Administration Quetiapine Fumarate 25 mg 05/05/19 21:00 05/11/19 21:42 Seroquel PO 25 mg HS DONALD Administration Sertraline HCl 100 mg 05/05/19 09:00 05/12/19 09:42 Zoloft PO 100 mg DAILY DONALD Administration Sodium Chloride 10 ml 04/30/19 18:32 05/12/19 09:43 Flush - Normal Saline IVF 10 ml PRN PRN Administration Saline Flush Sodium Chloride 10 ml 04/30/19 18:42 05/01/19 08:01 Normal Saline Pf FS 10 ml PRN PRN Administration RECONSTITUTION Zonisamide 100 mg 05/04/19 21:00 05/12/19 09:42 Zonisamide PO 100 mg BID DONALD Administration - Exam General Appearance: awake alert (, confused..) Neck: no JVD Heart: RRR Respiratory: rhonchi Gastrointestinal: soft Extremities: no edema Neurological: no weakness Hosp A/P (1) Acute metabolic encephalopathy Code(s): G93.41 - METABOLIC ENCEPHALOPATHY Status: Acute (2) HTN (hypertension) Code(s): I10 - ESSENTIAL (PRIMARY) HYPERTENSION Status: Acute Qualifiers: Hypertension type: essential hypertension Qualified Code(s): I10 - Essential (primary) hypertension (3) Small bowel obstruction Code(s): K56.609 - UNSP INTESTNL OBST, UNSP TO PARTIAL VERSUS COMPLETE OBST Status: Acute (4) Status post colectomy Status: Acute (5) Dementia Code(s): F03.90 - UNSPECIFIED DEMENTIA WITHOUT BEHAVIORAL DISTURBANCE Status: Acute (6) Delirium Code(s): R41.0 - DISORIENTATION, UNSPECIFIED Status: Acute - Plan Psych meds restarted.. Continue current therapy. f/u with consultants..
[2019-05-12] MEDS: 1/2 NS w/KCL 20 mEq 1,000 ML IV SCH (17:45)
--- NOTE | 2019-05-12 19:53 | PRG ---
DATE OF SERVICE: SUBJECTIVE: Mr. Stapleton is more alert today, though quite impulsive. He tolerated enteral nutritional supplementation at 20 mg/hour. OBJECTIVE: VITAL SIGNS: Today, include blood pressure 169/76, pulse 85, respiratory rate is 28, temperature is 98.8 degrees Fahrenheit, and oxygen saturation is 100% on FiO2 of 30% on high-flow nasal. ABDOMEN: Soft, nontender, and nondistended. NEUROLOGIC: Reveals no focal deficits present. Patient, however, is confused at baseline. He, however, is more alert today. LABORATORY FINDINGS: Include a CBC with 11,300 white blood cells, down from 13,900 yesterday; hemoglobin and hematocrit stable at 11.2 and 34.1 respectively; and platelet count is also stable at 159,000. Metabolic profile; sodium 136, potassium 4.0, chloride is 105, bicarb is 25, BUN 15, creatinine 0.80, and glucose 125. Prealbumin yesterday is low at 12.0. IMPRESSION: 1. Postoperative day #10 status post laparoscopic-assisted lysis of adhesions. 2. Chronic malnutrition. PLAN: 1. Increase enteral nutritional supplementation to goal. 2. Continue physical and occupational therapy. 3. Anticipate discharge of this patient to group home facility over the next few days. Job ID: [id number]
[2019-05-12] MEDS: Enoxaparin Sodium 40 MG/0.4 ML SYRINGE SC SCH (21:29)
[2019-05-13 06:17] LABS: #Eosinphils 0.2 thou/uL (0.0-0.7); #Lymphocytes 1.5 thou/uL (1.20-3.40); #Monocytes 1.2 thou/uL (0.11-0.59); #Neutrophils 8.4 thou/uL (1.40-6.50); %Basophils 0.4 % (0.0-1.0); %Eosinophils 1.5 % (0.0-10.0); %Lymphocytes 13.5 % (21.0-51.0); %Monocytes 10.3 % (0.0-10.0); %Neutrophils 74.3 % (42.0-75.0); Hemoglobin 11.1 g/dL (14.0-18.0); Mean Corpuscular HGB CONC 32.6 g/dL (32.0-36.0); Mean Corpuscular Hemoglobin 29.9 pg (27.0-31.0); Mean Corpuscular Volume 91.7 fL (78.0-98.0); Mean Platelet Volume 8.9 fL (7.4-10.4); Platelet Count 193 thou/uL (130-400); RBC Distribution Width 12.9 % (11.5-14.5); White Blood Cell (WBC) Count 11.3 thou/uL (4.8-10.8)
[2019-05-13 06:54] LABS: Anion Gap 9 mmol/L (10-20); BUN (Urea Nitrogen) 17 mg/dL (8.4-25.7); Calc. Creatinine Clearance 71 mL/min (70-130); Calcium 8.6 mg/dL (7.8-10.44); Carbon Dioxide 25 mmol/L (23-31); Chloride 105 mmol/L (98-107); Estimated GFR-MDRD 88; Glucose 109 mg/dL (83-110); Potassium 3.7 mmol/L (3.5-5.1); Sodium 135 mmol/L (136-145)
--- NOTE | 2019-05-13 09:09 | RAD ---
EXAM: Supine abdomen INDICATIONS: Dobbhoff placement COMPARISON: 05/11/2019 FINDINGS: NG tube passes through the EG junction. The tip of the Dobbhoff catheter is just beyond the EG junction in the upper gastric fundus.
[2019-05-13] MEDS: Fluconazole 100 MG TAB PO SCH (09:33)
[2019-05-13] MEDS: Zonisamide 100 MG CAP PO SCH ×2 (09:33→21:37)
[2019-05-13] MEDS: Pantoprazole 40 MG VIAL IVP SCH (09:34)
--- NOTE | 2019-05-13 10:59 | PRG ---
DATE OF SERVICE: 05/13/2019 SUBJECTIVE: He is much more awake. He has no acute complaints today. OBJECTIVE: VITAL SIGNS: Temperature 97.2, pulse 97, blood pressure 154/69, and O2 saturation 99%. HEENT: Unremarkable. NECK: No adenopathy or JVD. CHEST: Clear to auscultation. CARDIAC: S1 and S2. Regular. ABDOMEN: Soft. EXTREMITIES: No edema. ASSESSMENT: 1. Status post endotracheal intubation for inability to handle secretions. 2. Dementia. 3. Status post laparotomy. PLAN: Labs look good today. He is mainly in IMCU for nursing care as he continues to pull out feeding tubes and medical devices. I reviewed his orders and do not see any necessity in changing it. Job ID: [id number]
--- NOTE | 2019-05-13 11:06 | PDOC.HOSPP ---
- Subjective Encounter Date: 05/13/19 Encounter Time: 09:00 Subjective: Nurse reports that patient is less confused today... - Objective Vital Signs & Weight: Vital Signs (12 hours) Temp Pulse Resp Pulse Ox 05/13/19 10:19 80 17 05/13/19 09:00 84 16 05/13/19 08:00 100 05/13/19 07:47 99 05/13/19 07:46 90 16 99 05/13/19 07:08 97.2 F L 05/13/19 07:00 85 15 05/13/19 03:05 98.8 F 05/13/19 01:40 97 05/12/19 23:24 97.6 F Weight Admit Weight 182 lb 8 oz Weight 169 lb 12.8 oz Most Recent Monitor Data Heart Rate from ECG 79 NIBP 154/69 NIBP BP-Mean 97 Respiration from ECG 28 SpO2 99 I&O: 05/12/19 05/13/19 05/14/19 06:59 06:59 06:59 Intake Total 1586 2443 Output Total 1900 Balance 1586 543 Result Diagrams: 05/13/19 05:46 05/13/19 03:41 Hospitalist ROS - Medication Medications: Active Medications Generic Name Dose Route Start Last Admin Trade Name Freq PRN Reason Stop Dose Admin Albuterol/Ipratropium 3 ml 05/03/19 13:00 05/13/19 07:46 Duoneb NEB 3 ml [id number] DONALD Administration Enoxaparin Sodium 40 mg 04/30/19 21:00 05/12/19 21:29 Lovenox SC 40 mg 2100 DONALD Administration Fluconazole 100 mg 05/11/19 09:00 05/13/19 09:33 Diflucan PO 05/17/19 09:01 100 mg DAILY DONALD Administration Haloperidol Lactate 5 mg 05/02/19 13:39 05/11/19 15:52 Haldol SLOW IVP 5 mg Q6H PRN Administration Agitation Hydralazine HCl 10 mg 04/30/19 18:32 05/10/19 05:14 Apresoline SLOW IVP 10 mg Q4H PRN Administration SBP > 170 or DBP > 100 Potassium Chloride/Sodium Chloride 1,000 mls @ 50 mls/hr 05/09/19 16:43 05/12 17:45 1/2 Ns W/Kcl 20 Meq IV 1,000 mls .Q20H DONALD Administration Labetalol HCl 20 mg 05/10/19 05:53 05/10/19 06:10 Normodyne SLOW IVP 20 mg Q4H PRN Administration SBP Greater Than 180 Pantoprazole Sodium 40 mg 05/01/19 09:00 05/13/19 09:34 Protonix IVP 40 mg DAILY DONALD Administration Quetiapine Fumarate 25 mg 05/05/19 21:00 05/12/19 21:29 Seroquel PO 25 mg HS DONALD Administration Sertraline HCl 100 mg 05/05/19 09:00 05/13/19 09:33 Zoloft PO 100 mg DAILY DONLAD Administration Sodium Chloride 10 ml 04/30/19 18:32 05/12/19 09:43 Flush - Normal Saline IVF 10 ml PRN PRN Administration Saline Flush Sodium Chloride 10 ml 04/30/19 18:42 05/01/19 08:01 Normal Saline Pf FS 10 ml PRN PRN Administration RECONSTITUTION Zonisamide 100 mg 05/04/19 21:00 05/13/19 09:33 Zonisamide PO 100 mg BID DONALD Administration - Exam General Appearance: NAD (NGT inplace..), ill appearing Neck: no JVD Heart: RRR Respiratory: rhonchi Gastrointestinal: soft Extremities: no edema Neurological: no weakness Hosp A/P (1) Acute metabolic encephalopathy Code(s): G93.41 - METABOLIC ENCEPHALOPATHY Status: Acute Plan: Acute delirium/ICU psychosis improving. (2) HTN (hypertension) Code(s): I10 - ESSENTIAL (PRIMARY) HYPERTENSION Status: Acute Qualifiers: Hypertension type: essential hypertension Qualified Code(s): I10 - Essential (primary) hypertension (3) Small bowel obstruction Code(s): K56.609 - UNSP INTESTNL OBST, UNSP TO PARTIAL VERSUS COMPLETE OBST Status: Acute (4) Status post colectomy Status: Acute (5) Dementia Code(s): F03.90 - UNSPECIFIED DEMENTIA WITHOUT BEHAVIORAL DISTURBANCE Status: Acute (6) Delirium Code(s): R41.0 - DISORIENTATION, UNSPECIFIED Status: Acute - Plan Psych meds have been restarted.. Seems to be less confused today... Continue current therapy. f/u with consultants..
[2019-05-13] MEDS: Haloperidol Lactate 5 MG/ML VIAL SLOW IVP PRN (11:30)
--- NOTE | 2019-05-13 14:05 | PRG ---
DATE OF SERVICE: 05/13/2019 SUBJECTIVE: Mr. Stapleton is an 83-year-old man, who is postoperative day #11, status post laparoscopic-assisted lysis of adhesions. He has chronic malnutrition. He was started on enteral nutritional supplementation and yesterday, was tolerating tube feeds at goal. He inadvertently pulled out the feeding tube this morning. I was able to replace the feeding tube without incident. Tube feeds will be resumed. He is more awake and alert, and interactive this morning, less impulsive. OBJECTIVE: VITAL SIGNS: This morning include blood pressure 137/60, pulse is 87, respiratory rate is 20, temperature is 98.6 degrees Fahrenheit, oxygen saturation 97% on room air. HEART: Reveals irregular rate and irregular rhythm. LUNGS: Clear to auscultation bilaterally. Breathing, regular and nonlabored. ABDOMEN: Soft, nontender, nondistended. NEUROLOGIC: Reveals no focal deficits present. LABORATORY FINDINGS: Today include a CBC with 11,300 white blood cells, hemoglobin and hematocrit 11.1 and 34.0, respectively and stable. Platelet count is 193,000. Metabolic profile includes sodium 135, potassium 3.7, chloride is 105, bicarb is 25, BUN is 17, creatinine 0.83, and glucose is 109. IMPRESSIONS: 1. Postoperative day #11, status post laparoscopic-assisted lysis of adhesions. 2. Chronic malnutrition. PLAN: Continue enteral nutritional supplementation. Discharge planning is in progress. The patient will likely be transferred to [facility] in the next coming days. Job ID: [id number]
[2019-05-13 14:13] LABS: Phosphorus 2.3 mg/dL (2.3-4.7)
[2019-05-13] MEDS: 1/2 NS w/KCL 20 mEq 1,000 ML IV SCH (21:37)
[2019-05-13] MEDS: Enoxaparin Sodium 40 MG/0.4 ML SYRINGE SC SCH (21:37)
[2019-05-14 05:18] LABS: #Eosinphils 0.3 thou/uL (0.0-0.7); #Lymphocytes 2.3 thou/uL (1.20-3.40); #Monocytes 1.2 thou/uL (0.11-0.59); #Neutrophils 9.3 thou/uL (1.40-6.50); %Basophils 0.3 % (0.0-1.0); %Eosinophils 1.9 % (0.0-10.0); %Lymphocytes 17.6 % (21.0-51.0); %Monocytes 9.5 % (0.0-10.0); %Neutrophils 70.7 % (42.0-75.0); Hemoglobin 11.3 g/dL (14.0-18.0); Mean Corpuscular HGB CONC 33.3 g/dL (32.0-36.0); Mean Corpuscular Hemoglobin 30.2 pg (27.0-31.0); Mean Corpuscular Volume 90.6 fL (78.0-98.0); Mean Platelet Volume 8.9 fL (7.4-10.4); Platelet Count 226 thou/uL (130-400); RBC Distribution Width 12.7 % (11.5-14.5); Red Blood Cell (RBC) Count 3.75 mill/uL (4.70-6.10); White Blood Cell (WBC) Count 13.1 thou/uL (4.8-10.8)
[2019-05-14 05:37] LABS: Anion Gap 11 mmol/L (10-20); BUN (Urea Nitrogen) 21 mg/dL (8.4-25.7); Calc. Creatinine Clearance 71 mL/min (70-130); Calcium 8.9 mg/dL (7.8-10.44); Carbon Dioxide 22 mmol/L (23-31); Chloride 106 mmol/L (98-107); Estimated GFR-MDRD 88; Glucose 139 mg/dL (83-110); Magnesium 2.1 mg/dL (1.6-2.6); Phosphorus 2.8 mg/dL (2.3-4.7); Potassium 4.2 mmol/L (3.5-5.1); Sodium 135 mmol/L (136-145)
[2019-05-14] MEDS: Fluconazole 100 MG TAB PO SCH (08:50)
[2019-05-14] MEDS: Pantoprazole 40 MG VIAL IVP SCH (08:50)
[2019-05-14] MEDS: Zonisamide 100 MG CAP PO SCH ×2 (08:50→20:46)
--- NOTE | 2019-05-14 11:58 | PRG ---
DATE OF SERVICE: 05/14/2019 SUBJECTIVE: The patient is about the same, remains encephalopathic. OBJECTIVE: VITAL SIGNS: Temperature 98.6, pulse 94, respirations 20, O2 saturation 100%, and blood pressure 161/66. GENERAL: He is not alert or oriented. HEENT: Unremarkable. NECK: No adenopathy or JVD. CHEST: Clear. CARDIAC: S1, S2. Regular. ABDOMEN: Soft. EXTREMITIES: No edema. LABORATORY DATA: White blood cell count 13.1, hematocrit 34, and platelet count 226. Sodium 135, potassium 4.2, BUN 21, creatinine 0.8, glucose 139. ASSESSMENT: 1. Status post endotracheal intubation secondary to inability to handle secretions. 2. Dementia. 3. Status post laparotomy. PLAN: Main issue now is his encephalopathy. I would focus on limiting any type of sedating medications if that is possible that would include discontinuation of the Haldol and discontinuing the Seroquel. Job ID: [id number]
--- NOTE | 2019-05-14 12:09 | PDOC.HOSPP ---
- Subjective Encounter Date: 05/14/19 Encounter Time: 12:08 Subjective: confused, feeding tube - Objective Vital Signs & Weight: Vital Signs (12 hours) Temp Pulse Resp BP Pulse Ox 05/14/19 11:53 97.9 F 92 20 163/73 H 93 L 05/14/19 10:36 100 05/14/19 10:35 94 20 05/14/19 08:08 98.6 F 100 18 161/66 H 05/14/19 04:27 98 F 94 22 H 178/70 H 100 05/14/19 00:57 91 16 95 Weight Admit Weight 182 lb 8 oz Weight 173 lb 9.6 oz Most Recent Monitor Data Heart Rate from ECG 79 NIBP 157/81 NIBP BP-Mean 106 Respiration from ECG 28 SpO2 99 I&O: 05/13/19 05/14/19 05/15/19 06:59 06:59 06:59 Intake Total 2443 1530 30 Output Total 1900 400 Balance 543 1130 30 Result Diagrams: 05/14/19 04:46 05/14/19 04:46 Hospitalist ROS - Medication Medications: Active Medications Generic Name Dose Route Start Last Admin Trade Name Freq PRN Reason Stop Dose Admin Albuterol/Ipratropium 3 ml 05/03/19 13:00 05/14/19 10:35 Duoneb NEB 3 ml [id number] DONALD Administration Enoxaparin Sodium 40 mg 04/30/19 21:00 05/13/19 21:37 Lovenox SC 40 mg 2100 DONALD Administration Fluconazole 100 mg 05/11/19 09:00 05/14/19 08:50 Diflucan PO 05/17/19 09:01 100 mg DAILY DONALD Administration Hydralazine HCl 10 mg 04/30/19 18:32 05/10/19 05:14 Apresoline SLOW IVP 10 mg Q4H PRN Administration SBP > 170 or DBP > 100 Potassium Chloride/Sodium Chloride 1,000 mls @ 50 mls/hr 05/09/19 16:43 05/13 21:37 1/2 Ns W/Kcl 20 Meq IV Not Given .Q20H DONALD Labetalol HCl 20 mg 05/10/19 05:53 05/10/19 06:10 Normodyne SLOW IVP 20 mg Q4H PRN Administration SBP Greater Than 180 Pantoprazole Sodium 40 mg 05/01/19 09:00 05/14/19 08:50 Protonix IVP 40 mg DAILY DONALD Administration Sertraline HCl 100 mg 05/05/19 09:00 05/14/19 08:50 Zoloft PO 100 mg DAILY DONALD Administration Sodium Chloride 10 ml 04/30/19 18:32 05/12/19 09:43 Flush - Normal Saline IVF 10 ml PRN PRN Administration Saline Flush Sodium Chloride 10 ml 04/30/19 18:42 05/01/19 08:01 Normal Saline Pf FS 10 ml PRN PRN Administration RECONSTITUTION Zonisamide 100 mg 05/04/19 21:00 05/14/19 08:50 Zonisamide PO 100 mg BID DONALD Administration - Exam Neck: no JVD Heart: RRR Respiratory - other findings: scattered rhonchi Gastrointestinal: soft, normal bowel sounds Extremities: no edema Hosp A/P (1) HTN (hypertension) Code(s): I10 - ESSENTIAL (PRIMARY) HYPERTENSION Status: Acute Qualifiers: Hypertension type: essential hypertension Qualified Code(s): I10 - Essential (primary) hypertension (2) CKD (chronic kidney disease), stage III Code(s): N18.3 - CHRONIC KIDNEY DISEASE, STAGE 3 (MODERATE) Status: Resolved (3) Acute metabolic encephalopathy Code(s): G93.41 - METABOLIC ENCEPHALOPATHY Status: Acute (4) Small bowel obstruction Code(s): K56.609 - UNSP INTESTNL OBST, UNSP TO PARTIAL VERSUS COMPLETE OBST Status: Acute (5) Dyslipidemia Code(s): E78.5 - HYPERLIPIDEMIA, UNSPECIFIED Status: Acute - Plan stable, on enteral nutrition needs Tube antihypertensives may be difficult to send to SNF with NGT
[2019-05-14] MEDS: 1/2 NS w/KCL 20 mEq 1,000 ML IV SCH (18:06)
[2019-05-14] MEDS: Enoxaparin Sodium 40 MG/0.4 ML SYRINGE SC SCH (20:47)
--- NOTE | 2019-05-14 21:25 | PRG ---
DATE OF SERVICE: SUBJECTIVE: Mr. Stapleton remains in his bed on the surgical floor. He is alert and seems interactive, but it is difficult to really communicate with him. He is not agitated and he shakes my hand this evening. He still has a Dobbhoff feeding tube in place and he is receiving his tube feeds at a goal rate of 55 mL/h. Patient has no complaints. OBJECTIVE: VITAL SIGNS: On examination, he is afebrile, pulse is 84 to 94, and blood pressure 170/73. LUNGS: Clear to auscultation. ABDOMEN: Soft with incisions well healed and has normal bowel sounds. EXTREMITIES: Unremarkable. LABORATORY DATA: His white blood cell count is a little bit elevated at 13, hemoglobin is stable at 11.3. Chemistry panel shows minimal abnormalities. ASSESSMENT: Patient is postoperative day #12 from laparoscopic-assisted lysis of adhesions. He remains hospitalized primarily because of the severity of his hospital-acquired delirium. He still is dependent upon tube feeds for nutrition. He will either have to pass a swallow test or have a more permanent form of tube feeding arranged. I am hopeful that he will be able to increase his level of activity as well. We will need to initiate discharge planning in near future. Job ID: [id number]
[2019-05-15 05:27] LABS: #Eosinphils 0.2 thou/uL (0.0-0.7); #Lymphocytes 1.8 thou/uL (1.20-3.40); #Monocytes 0.9 thou/uL (0.11-0.59); #Neutrophils 8.9 thou/uL (1.40-6.50); %Basophils 0.2 % (0.0-1.0); %Eosinophils 1.4 % (0.0-10.0); %Lymphocytes 15.3 % (21.0-51.0); %Monocytes 7.4 % (0.0-10.0); %Neutrophils 75.7 % (42.0-75.0); Hemoglobin 11.7 g/dL (14.0-18.0); Mean Corpuscular HGB CONC 32.8 g/dL (32.0-36.0); Mean Corpuscular Hemoglobin 29.8 pg (27.0-31.0); Mean Corpuscular Volume 91.1 fL (78.0-98.0); Mean Platelet Volume 8.5 fL (7.4-10.4); Platelet Count 237 thou/uL (130-400); Red Blood Cell (RBC) Count 3.94 mill/uL (4.70-6.10); White Blood Cell (WBC) Count 11.8 thou/uL (4.8-10.8)
[2019-05-15 05:49] LABS: BUN (Urea Nitrogen) 24 mg/dL (8.4-25.7); Calc. Creatinine Clearance 71 mL/min (70-130); Calcium 9.1 mg/dL (7.8-10.44); Carbon Dioxide 23 mmol/L (23-31); Estimated GFR-MDRD 88; Glucose 129 mg/dL (83-110)
[2019-05-15 05:58] LABS: Anion Gap 10 mmol/L (10-20); Chloride 105 mmol/L (98-107); Potassium 4.1 mmol/L (3.5-5.1); Sodium 134 mmol/L (136-145)
[2019-05-15] MEDS: 1/2 NS w/KCL 20 mEq 1,000 ML IV SCH (08:15)
[2019-05-15] MEDS: Pantoprazole 40 MG VIAL IVP SCH (09:18)
[2019-05-15] MEDS: Fluconazole 100 MG TAB PO SCH (09:44)
[2019-05-15] MEDS: Lisinopril 10 MG TAB PER TUBE SCH (09:44)
[2019-05-15] MEDS: Zonisamide 100 MG CAP PO SCH ×2 (09:44→20:18)
--- NOTE | 2019-05-15 14:04 | RAD ---
Modified Barium Swallow CLINICAL HISTORY: Dysphagia, unspecified R13.10, feeding difficulties R 63.3 FINDINGS: The examination is performed under real-time fluoroscopy under guidance of the speech ther apy department. 2.3 minutes fluoroscopic time. There were episodes of tracheal aspiration and penetration with thin barium liquids and barium impre gnated nectar. There were no episodes of tracheal aspiration or penetration with barium impregnated honey or thick f luids. IMPRESSION: Episodes of tracheal aspiration penetration with thin barium liquids and barium impregnat ed nectar. No episodes of tracheal aspiration or penetration with barium impregnated honey or thick fluids. Reference speech pathology report for further details.
[2019-05-15 14:19] VITALS: BMI 23.1
--- NOTE | 2019-05-15 14:28 | PDOC.HOSPP ---
- Subjective Encounter Date: 05/15/19 Encounter Time: 14:26 Subjective: a,no distress, confused - Objective Vital Signs & Weight: Vital Signs (12 hours) Temp Pulse Resp BP Pulse Ox 05/15/19 12:25 97.7 F 94 20 142/71 H 100 05/15/19 08:56 90 16 90 L 05/15/19 08:18 97.9 F 90 16 173/71 H 97 05/15/19 04:05 97.3 F L 90 18 127/62 96 Weight Admit Weight 182 lb 8 oz Weight 170 lb 11.2 oz Most Recent Monitor Data Heart Rate from ECG 79 NIBP 157/81 NIBP BP-Mean 106 Respiration from ECG 28 SpO2 99 I&O: 05/14/19 05/15/19 05/16/19 06:59 06:59 06:59 Intake Total 1530 1560 60 Output Total 400 550 Balance 1130 1010 60 Result Diagrams: 05/15/19 05:06 05/15/19 05:06 Hospitalist ROS - Medication Medications: Active Medications Generic Name Dose Route Start Last Admin Trade Name Freq PRN Reason Stop Dose Admin Albuterol/Ipratropium 3 ml 05/03/19 13:00 05/15/19 14:13 Duoneb NEB Not Given [id number] DONALD Enoxaparin Sodium 40 mg 04/30/19 21:00 05/14/19 20:47 Lovenox SC 40 mg 2100 DONALD Administration Fluconazole 100 mg 05/11/19 09:00 05/15/19 09:44 Diflucan PO 05/17/19 09:01 100 mg DAILY DONALD Administration Hydralazine HCl 10 mg 04/30/19 18:32 05/10/19 05:14 Apresoline SLOW IVP 10 mg Q4H PRN Administration SBP > 170 or DBP > 100 Potassium Chloride/Sodium Chloride 1,000 mls @ 50 mls/hr 05/09/19 16:43 05/15 08:15 1/2 Ns W/Kcl 20 Meq IV 1,000 mls .Q20H DONALD Administration Labetalol HCl 20 mg 05/10/19 05:53 05/10/19 06:10 Normodyne SLOW IVP 20 mg Q4H PRN Administration SBP Greater Than 180 Lisinopril 10 mg 05/15/19 09:00 05/15/19 09:44 Zestril PER TUBE 10 mg DAILY DONALD Administration Pantoprazole Sodium 40 mg 05/01/19 09:00 05/15/19 09:18 Protonix IVP 40 mg DAILY DONALD Administration Sertraline HCl 100 mg 05/05/19 09:00 05/15/19 09:44 Zoloft PO 100 mg DAILY DONALD Administration Sodium Chloride 10 ml 04/30/19 18:32 05/12/19 09:43 Flush - Normal Saline IVF 10 ml PRN PRN Administration Saline Flush Sodium Chloride 10 ml 04/30/19 18:42 05/01/19 08:01 Normal Saline Pf FS 10 ml PRN PRN Administration RECONSTITUTION Zonisamide 100 mg 05/04/19 21:00 05/15/19 09:44 Zonisamide PO 100 mg BID DONALD Administration - Exam ENT - other findings: dobhoff feeding tube Neck: no JVD Heart: RRR, no murmur Respiratory: CTAB Gastrointestinal: soft, non-distended, no palpable masses Hosp A/P (1) HTN (hypertension) Code(s): I10 - ESSENTIAL (PRIMARY) HYPERTENSION Status: Acute Qualifiers: Hypertension type: essential hypertension Qualified Code(s): I10 - Essential (primary) hypertension (2) CKD (chronic kidney disease), stage III Code(s): N18.3 - CHRONIC KIDNEY DISEASE, STAGE 3 (MODERATE) Status: Resolved (3) Acute metabolic encephalopathy Code(s): G93.41 - METABOLIC ENCEPHALOPATHY Status: Acute (4) Small bowel obstruction Code(s): K56.609 - UNSP INTESTNL OBST, UNSP TO PARTIAL VERSUS COMPLETE OBST Status: Resolved (5) Dyslipidemia Code(s): E78.5 - HYPERLIPIDEMIA, UNSPECIFIED Status: Acute - Plan stable, on enteral nutrition needs Tube antihypertensives post MBS- speech recomendation pending
--- NOTE | 2019-05-15 16:01 | PRG ---
DATE OF SERVICE: 05/15/2019 SERVICE: Pulmonary Medicine. INTERVAL HISTORY: The patient is doing outstanding from respiratory standpoint. He is on room air. Denies any current chest discomfort, shortness of breath, fevers, or chills. There are no significant overnight events. He is tolerating tube feeds. He remains a little bit confused, but currently is not requiring any restraints. PHYSICAL EXAMINATION: VITAL SIGNS: Afebrile, pulse 94, blood pressure 142/71, respirations 20, and saturation 100% on room air. GENERAL: The patient is awake and alert, in no apparent distress. LUNGS: Decent air entry with no prolonged expiratory phase or wheezing present. HEART: Normal rate, regular. ABDOMEN: Soft. Minimal tenderness to palpation. Bowel sounds are hypoactive. NEUROLOGIC: Grossly nonfocal. LABORATORY DATA: WBC 11.8, hemoglobin 11.7, platelets 237,000. Basic metabolic profile is essentially unremarkable. Calcium 9.1, phosphorus 2.8. Urine culture is negative. IMAGING STUDIES: Modified barium swallow demonstrates tracheal aspiration and penetration with thin barium liquids and barium impregnated nectar. No episodes of aspiration penetration with honey thickened fluids. ASSESSMENT: 1. Acute hypoxic respiratory failure, resolved. 2. Acute bronchitis, resolved. 3. Delirium with likely underlying dementia. 4. Small bowel obstruction, status post lysis of adhesions. DISCUSSION AND PLAN: The patient is doing fantastic from a mentation standpoint. He is pretty organized and slow. He has been weaned off oxygen altogether. At this point, he has no further requirements for inpatient Pulmonary or Critical Care opinion, and I will sign off. Please call with additional questions or concerns through time. Job ID: [id number]
[2019-05-15] MEDS: Enoxaparin Sodium 40 MG/0.4 ML SYRINGE SC SCH (20:18)
[2019-05-16] MEDS ORDERED: Ketamine 50 MG/ML (10ML VIAL) ONE (09:48)
[2019-05-16] MEDS ORDERED: Ondansetron HCl/PF 4 MG/2 ML Vial IVP PRN (10:58)
--- NOTE | 2019-05-16 14:39 | PDOC.HOSPP ---
- Subjective Encounter Date: 05/16/19 Encounter Time: 14:37 Subjective: awake, alert, no distress - Objective Vital Signs & Weight: Vital Signs (12 hours) Temp Pulse Resp BP Pulse Ox 05/16/19 13:31 87 20 94 L 05/16/19 07:52 98.4 F 90 20 139/67 97 05/16/19 07:13 83 20 95 05/16/19 04:39 98.6 F 84 16 129/61 95 Weight Admit Weight 182 lb 8 oz Weight 173 lb 8 oz Most Recent Monitor Data Heart Rate from ECG 79 NIBP 157/81 NIBP BP-Mean 106 Respiration from ECG 28 SpO2 99 I&O: 05/15/19 05/16/19 05/17/19 06:59 06:59 06:59 Intake Total 1560 1750 Output Total 550 Balance 1010 1750 Result Diagrams: 05/15/19 05:06 05/15/19 05:06 Hospitalist ROS - Medication Medications: Active Medications Generic Name Dose Route Start Last Admin Trade Name Freq PRN Reason Stop Dose Admin Albuterol/Ipratropium 3 ml 05/03/19 13:00 05/16/19 13:31 Duoneb NEB 3 ml [id number] DONALD Administration Enoxaparin Sodium 40 mg 04/30/19 21:00 05/15/19 20:18 Lovenox SC 40 mg 2100 DONALD Administration Fluconazole 100 mg 05/11/19 09:00 05/15/19 09:44 Diflucan PO 05/17/19 09:01 100 mg DAILY DONALD Administration Hydralazine HCl 10 mg 04/30/19 18:32 05/10/19 05:14 Apresoline SLOW IVP 10 mg Q4H PRN Administration SBP > 170 or DBP > 100 Labetalol HCl 20 mg 05/10/19 05:53 05/10/19 06:10 Normodyne SLOW IVP 20 mg Q4H PRN Administration SBP Greater Than 180 Lisinopril 10 mg 05/15/19 09:00 05/15/19 09:44 Zestril PER TUBE 10 mg DAILY DONALD Administration Pantoprazole Sodium 40 mg 05/01/19 09:00 05/15/19 09:18 Protonix IVP 40 mg DAILY DONALD Administration Sertraline HCl 100 mg 05/05/19 09:00 05/15/19 09:44 Zoloft PO 100 mg DAILY DONALD Administration Sodium Chloride 10 ml 04/30/19 18:32 05/15/19 20:19 Flush - Normal Saline IVF 10 ml PRN PRN Administration Saline Flush Sodium Chloride 10 ml 04/30/19 18:42 05/01/19 08:01 Normal Saline Pf FS 10 ml PRN PRN Administration RECONSTITUTION Zonisamide 100 mg 05/04/19 21:00 05/15/19 20:18 Zonisamide PO 100 mg BID DONALD Administration - Exam General Appearance: awake alert Neck: no JVD Heart: RRR, no murmur Respiratory: CTAB Gastrointestinal: soft, non-tender, normal bowel sounds Gastrointestinal - other findings: PEG Extremities: no edema Hosp A/P (1) HTN (hypertension) Code(s): I10 - ESSENTIAL (PRIMARY) HYPERTENSION Status: Acute Qualifiers: Hypertension type: essential hypertension Qualified Code(s): I10 - Essential (primary) hypertension (2) CKD (chronic kidney disease), stage III Code(s): N18.3 - CHRONIC KIDNEY DISEASE, STAGE 3 (MODERATE) Status: Resolved (3) Acute metabolic encephalopathy Code(s): G93.41 - METABOLIC ENCEPHALOPATHY Status: Chronic (4) Small bowel obstruction Code(s): K56.609 - UNSP INTESTNL OBST, UNSP TO PARTIAL VERSUS COMPLETE OBST Status: Resolved (5) Dyslipidemia Code(s): E78.5 - HYPERLIPIDEMIA, UNSPECIFIED Status: Chronic - Plan stable, on enteral nutrition and meds POST PEG placement
[2019-05-16] MEDS ORDERED: PROPOFOL 200 MG/20 ML VIAL ONE (15:26)
[2019-05-16] MEDS: Pantoprazole 40 MG VIAL IVP SCH (15:30)
[2019-05-16] MEDS: Fluconazole 100 MG TAB PO SCH (15:30)
[2019-05-16] MEDS: Lisinopril 10 MG TAB PER TUBE SCH (15:30)
[2019-05-16] MEDS: Zonisamide 100 MG CAP PO SCH ×2 (15:31→20:40)
[2019-05-16] MEDS: Enoxaparin Sodium 40 MG/0.4 ML SYRINGE SC SCH (20:33)
[2019-05-17] MEDS ORDERED: traMADol HCl 50 MG TAB PER TUBE PRN (02:32)
[2019-05-17] MEDS ORDERED: Fentanyl 100 MCG/2 ML VIAL SLOW IVP SCH (02:45)
[2019-05-17] MEDS ORDERED: traMADol HCl 50 MG TAB ONE (03:37)
[2019-05-17] MEDS: Lisinopril 10 MG TAB PER TUBE SCH (08:00)
[2019-05-17] MEDS: Zonisamide 100 MG CAP PO SCH (08:00)
[2019-05-17] MEDS: Fluconazole 100 MG TAB PO SCH (08:00)
[2019-05-17] MEDS: Pantoprazole 40 MG VIAL IVP SCH (08:00)
[2019-05-17 13:54] VITALS: BP 115/54; TEMP 98.5
== END 2019-05-17 17:15 | disposition swing bed (61) | DRG 335 ==
LOC: ERS 12:57 → SURG A 20:17 → CCU 05-02 20:48 → IMCU/EMU 05-10 20:14 → SURG A 05-13 12:34
PROVIDERS: ADMIT Specialist; ATTEND Specialist
PROC: 0HQ1XZZ Repair Face Skin, External Approach (ICD-10-PCS; 2019-05-01)
PROC: 0DN80ZZ Release Small Intestine, Open Approach (ICD-10-PCS; principal; 2019-05-02)
PROC: 02HV33Z Insertion of Infusion Device into Superior Vena Cava, Percutaneous Approach (ICD-10-PCS; 2019-05-02)
PROC: 0BH18EZ Insertion of Endotracheal Airway into Trachea, Via Natural or Artificial Opening Endoscopic (ICD-10-PCS; 2019-05-05)
PROC: 5A1945Z Respiratory Ventilation, 24-96 Consecutive Hours (ICD-10-PCS; 2019-05-05)
DX: K91.30 Postprocedural intestinal obstruction, unspecified as to partial versus complete (principal); G93.41 Metabolic encephalopathy; J96.01 Acute respiratory failure with hypoxia; F05 Delirium due to known physiological condition; E46 Unspecified protein-calorie malnutrition; B37.0 Candidal stomatitis; Y83.8 Other surgical procedures as the cause of abnormal reaction of the patient, or of later complication, without mention of misadventure at the time of the procedure; E78.5 Hyperlipidemia, unspecified; M19.90 Unspecified osteoarthritis, unspecified site; K21.9 Gastro-esophageal reflux disease without esophagitis; F32.9 Major depressive disorder, single episode, unspecified; M10.9 Gout, unspecified; D75.1 Secondary polycythemia; F43.10 Post-traumatic stress disorder, unspecified; D72.829 Elevated white blood cell count, unspecified; I12.9 Hypertensive chronic kidney disease with stage 1 through stage 4 chronic kidney disease, or unspecified chronic kidney disease; N18.3 Chronic kidney disease, stage 3 (moderate); W17.89XA Other fall from one level to another, initial encounter; Y92.238 Other place in hospital as the place of occurrence of the external cause; J20.9 Acute bronchitis, unspecified; F03.90 Unspecified dementia, unspecified severity, without behavioral disturbance, psychotic disturbance, mood disturbance, and anxiety; S01.81XA Laceration without foreign body of other part of head, initial encounter; Z78.1 Physical restraint status; Z98.1 Arthrodesis status; Z88.6 Allergy status to analgesic agent; Z88.8 Allergy status to other drugs, medicaments and biological substances; Z90.49 Acquired absence of other specified parts of digestive tract; Z79.899 Other long term (current) drug therapy; Z89.611 Acquired absence of right leg above knee; Z68.23 Body mass index [BMI] 23.0-23.9, adult
CPT/HCPCS: 36415; 36416; 70450; 71045; 74018; 74019; 74177; 74230; 74250; 80048; 80053; 81001; 81003; 81015; 82140; 82533; 82607; 82805; 83690; 83735; 84100; 84134; 84443; 85014; 85018; 85025; 87086; 94002; 94003; 94640; 96361; 96374; 96375; 96376; C9113; J0131; J0360; J0690; J1630; J1650; J1885; J1956; J2001; J2060; J2250; J2270; J2370; J2405; J2704; J2920; J3010; J3480; J3490; J7050; J7120; J7620; P9045; Q9967; S0020

== ENCOUNTER 2019-11-13 | Outpatient (CLI) | payer MEDICARE | END 2019-11-13 10:45 | disposition home or self-care (01) | DX: L03.032 Cellulitis of left toe (principal); M79.89 Other specified soft tissue disorders ==